=== PATIENT | female | born 1945 | race Caucasian/White ===

== ENCOUNTER → 2018-11-17 13:52 | Outpatient (CLI) | payer OTHER, SELFPAY | PROVIDERS: Visit Provider Student in an Organized Health Care Education/Training Program | DX: Z00.00 Encounter for general adult medical examination without abnormal findings (principal) | CPT/HCPCS: 77080; 77081 ==

== ENCOUNTER → 2020-01-16 16:15 | Outpatient (CLI) | payer OTHER, SELFPAY ==
--- NOTE | 2020-01-16 16:18 | DI.MG.S_ITS ---
BILATERAL DIGITAL SCREENING MAMMOGRAM 3D/2D WITH CAD: 01/16/2020 CLINICAL: Routine screening. Comparison is made to exams dated: 06/23/2018 mammogram, 03/02/2017 mammogram, and 01/29/2016 mammogram - outside location. The tissue of both breasts is extremely dense, which lowers the sensitivity of mammography. Current study was also evaluated with a Computer Aided Detection (CAD) system. No significant masses, calcifications, or other findings are seen in either breast. There has been no significant interval change. IMPRESSION: NEGATIVE There is no mammographic evidence of malignancy. A 1 year screening mammogram is recommended. This exam was interpreted at Station ID: [id number]. NOTE: For mammograms, a report in lay terms will be sent to the patient. Approximately 15% of breast malignancies will not be visualized mammographically. In the management of a palpable breast mass, a negative mammogram must not discourage biopsy of a clinically suspicious lesion. Electronically Signed By: Jania denton/gina:01/16/2020 16:57:35 letter sent: Normal Exam ACR BI-RADS Category 1: Negative [id number]
== END ==
PROVIDERS: Referring Provider Student in an Organized Health Care Education/Training Program; Visit Provider Student in an Organized Health Care Education/Training Program
DX: Z12.31 Encounter for screening mammogram for malignant neoplasm of breast (principal)
CPT/HCPCS: 77063; 77067

== ENCOUNTER → 2020-02-08 11:02 | Outpatient (ROUT) | payer OTHER, SELFPAY ==
[2020-02-08 11:15] LABS: INR 1.2 (0.9-1.3); Prothrombin Time 13.2 SECONDS (10.1-12.7)
== END ==
PROVIDERS: Visit Provider Student in an Organized Health Care Education/Training Program
DX: Z79.01 Long term (current) use of anticoagulants (principal); I82.90 Acute embolism and thrombosis of unspecified vein
CPT/HCPCS: 85610

== ENCOUNTER → 2020-02-15 07:51 | Outpatient (ROUT) | payer OTHER, SELFPAY ==
[2020-02-15 08:07] LABS: INR 1.4 (0.9-1.3); Prothrombin Time 15.7 SECONDS (10.1-12.7)
== END ==
PROVIDERS: Visit Provider Student in an Organized Health Care Education/Training Program
DX: I82.90 Acute embolism and thrombosis of unspecified vein (principal)
CPT/HCPCS: 85610

== ENCOUNTER → 2020-02-23 12:38 | Outpatient (ROUT) | payer OTHER, SELFPAY ==
[2020-02-23 13:14] LABS: INR 1.7 (0.9-1.3)
== END ==
PROVIDERS: Visit Provider Student in an Organized Health Care Education/Training Program
DX: Z79.01 Long term (current) use of anticoagulants (principal); I82.90 Acute embolism and thrombosis of unspecified vein
CPT/HCPCS: 85610

== ENCOUNTER → 2020-02-29 08:00 | Outpatient (ROUT) | payer OTHER, SELFPAY ==
[2020-02-29 08:08] LABS: INR 2.1 (0.9-1.3); Prothrombin Time 24.3 SECONDS (10.1-12.7)
== END ==
PROVIDERS: Visit Provider Student in an Organized Health Care Education/Training Program
DX: I82.90 Acute embolism and thrombosis of unspecified vein (principal)
CPT/HCPCS: 85610

== ENCOUNTER → 2020-03-07 07:58 | Outpatient (ROUT) | payer OTHER, SELFPAY ==
[2020-03-07 08:18] LABS: INR 2.7 (0.9-1.3)
== END ==
PROVIDERS: Visit Provider Student in an Organized Health Care Education/Training Program
DX: I82.90 Acute embolism and thrombosis of unspecified vein (principal); Z79.01 Long term (current) use of anticoagulants
CPT/HCPCS: 85610

== ENCOUNTER → 2020-03-07 07:59 | Outpatient (CLI) | payer OTHER, SELFPAY ==
--- NOTE | 2020-03-07 | DI.US.S_ITS ---
PROCEDURE: US PERIPH VENOUS LOW EXTREM LT INDICATIONS: LOCALIZED EDEMA TECHNIQUE: Real-time imaging, as well as color and pulse Doppler interrogation, were performed of the lower extremity deep veins from the inguinal ligament to the popliteal fossa. COMPARISON: None. FINDINGS: The common femoral, femoral and popliteal veins are normally compressible, and free of intraluminal thrombus. Color and pulse Doppler demonstrate normal phasic intraluminal flow. There is normal augmentation response to distal compression maneuver. IMPRESSION: No DVT found. Dictated by: Sonny Shukla M.D. on 03/07/2020 at 10:25 Approved by: Sonny Shukla M.D. on 03/07/2020 at 10:26
--- NOTE | 2020-03-07 08:05 | DI.RAD.S_ITS ---
PROCEDURE: XR ANKLE LT MIN 3V INDICATIONS: LEFT ANKLE PAIN AND SWELLING TECHNIQUE: 3 views of the ankle were acquired. COMPARISON: None. FINDINGS: Bones: No fracture. Tibiotalar degenerative changes and a possible 3 mm loose body projecting in the medial tibiotalar joint although technically nonspecific and this could be projectional artifact. Scattered degenerative subchondral sclerosis and spurring. Soft tissues: No tibiotalar joint effusion. Achilles tendon appears normal. IMPRESSION: Tibiotalar joint degenerative changes, and possible loose body as discussed above If the patient's pain or other symptoms persist, consider further evaluation with MRI Dictated by: Luis Uriarte M.D. on 03/07/2020 at 9:51 Approved by: Luis Uriarte M.D. on 03/07/2020 at 9:54
--- NOTE | 2020-03-07 08:05 | DI.RAD.S_ITS ---
PROCEDURE: XR T AND L SPINE 2 TO 3 VIEWS INDICATIONS: SCOLIOSIS TECHNIQUE: 2 views acquired of the thoracolumbar spine. COMPARISON: None. FINDINGS: Bones: No fracture. Diffuse spondylosis and facet arthropathy. 37? of levoscoliosis extending from the superior endplate of L1 to the inferior endplate of L3. Borderline positive coronal balance. Negative sagittal balance Soft tissues: No suspicious soft tissue calcifications. IMPRESSION: 37? of levoscoliosis from L1-L3 as above Diffuse spondylosis and facet disease. Dictated by: Luis Uriarte M.D. on 03/07/2020 at 9:54 Approved by: Luis Uriarte M.D. on 03/07/2020 at 9:58
== END ==
PROVIDERS: PCP Student in an Organized Health Care Education/Training Program; Referring Provider Student in an Organized Health Care Education/Training Program; Visit Provider Student in an Organized Health Care Education/Training Program
DX: R60.0 Localized edema (principal); M25.572 Pain in left ankle and joints of left foot; M41.26 Other idiopathic scoliosis, lumbar region; M47.816 Spondylosis without myelopathy or radiculopathy, lumbar region; I82.90 Acute embolism and thrombosis of unspecified vein; Z79.01 Long term (current) use of anticoagulants
CPT/HCPCS: 72082; 73610; 85610; 93971

== ENCOUNTER → 2020-03-14 09:59 | Outpatient (ROUT) | payer OTHER, SELFPAY ==
[2020-03-14 10:12] LABS: INR 2.5 (0.9-1.3); Prothrombin Time 28.9 SECONDS (10.1-12.7)
== END ==
PROVIDERS: PCP Student in an Organized Health Care Education/Training Program; Visit Provider Student in an Organized Health Care Education/Training Program
DX: I82.90 Acute embolism and thrombosis of unspecified vein (principal); Z79.01 Long term (current) use of anticoagulants
CPT/HCPCS: 85610

== ENCOUNTER → 2020-03-21 08:00 | Outpatient (ROUT) | payer OTHER, SELFPAY ==
[2020-03-21 08:08] LABS: INR 2.4 (0.9-1.3); Prothrombin Time 27.6 SECONDS (10.1-12.7)
== END ==
PROVIDERS: PCP Student in an Organized Health Care Education/Training Program; Visit Provider Student in an Organized Health Care Education/Training Program
DX: Z79.01 Long term (current) use of anticoagulants (principal)
CPT/HCPCS: 85610

== ENCOUNTER → 2020-03-28 08:08 | Outpatient (ROUT) | payer OTHER, SELFPAY ==
[2020-03-28 08:16] LABS: INR 1.9 (0.9-1.3); Prothrombin Time 22.1 SECONDS (10.1-12.7)
== END ==
PROVIDERS: PCP Student in an Organized Health Care Education/Training Program; Visit Provider Student in an Organized Health Care Education/Training Program
DX: I82.90 Acute embolism and thrombosis of unspecified vein (principal); Z79.01 Long term (current) use of anticoagulants
CPT/HCPCS: 85610

== ENCOUNTER → 2020-04-04 10:44 | Outpatient (ROUT) | payer OTHER, SELFPAY ==
[2020-04-04 10:55] LABS: INR 1.7 (0.9-1.3); Prothrombin Time 19.4 SECONDS (10.1-12.7)
== END ==
PROVIDERS: PCP Student in an Organized Health Care Education/Training Program; Visit Provider Student in an Organized Health Care Education/Training Program
DX: Z79.01 Long term (current) use of anticoagulants (principal)
CPT/HCPCS: 85610

== ENCOUNTER → 2020-04-11 08:21 | Outpatient (ROUT) | payer OTHER, SELFPAY ==
[2020-04-11 08:43] LABS: INR 2.1 (0.9-1.3); Prothrombin Time 24.3 SECONDS (10.1-12.7)
== END ==
PROVIDERS: PCP Student in an Organized Health Care Education/Training Program; Visit Provider Student in an Organized Health Care Education/Training Program
DX: Z79.01 Long term (current) use of anticoagulants (principal)
CPT/HCPCS: 85610

== ENCOUNTER → 2020-04-13 07:29 | Outpatient (CLI) | payer OTHER, SELFPAY ==
[2020-04-13 08:33] LABS: Blood Urea Nitrogen 21 mg/dL (7-17); Estimated Glomerular Filt Rate > 60.0 mL/min (>60)
== END ==
PROVIDERS: PCP Student in an Organized Health Care Education/Training Program; Referring Provider Otolaryngology; Visit Provider Otolaryngology
DX: R22.1 Localized swelling, mass and lump, neck (principal); I78.1 Nevus, non-neoplastic
CPT/HCPCS: 36415; 82565; 84520

== ENCOUNTER → 2020-04-16 11:06 | Outpatient (CLI) | payer OTHER, SELFPAY ==
--- NOTE | 2020-04-16 | DI.CT.S_ITS ---
PROCEDURE: CT SOFT TISSUE NECK W CON INDICATIONS: Localized swelling, mass and lump, neck TECHNIQUE: After the administration of intravenous contrast, 3.0 mm axial sections acquired from the sella to the aortic arch. Additional oblique axial 3.0 mm sections acquired through the pharynx. 3 mm thick coronal and sagittal reformats were generated. For radiation dose reduction, the following was used: automated exposure control. COMPARISON: None. FINDINGS: Image quality: Excellent. Lymph nodes: No enlarged lymph nodes seen throughout the neck. Vessels: Visualized vasculature appears patent. Neck spaces: There is asymmetric soft tissue fullness involving the left tonsillar pillar, although no discrete mass is identified. A presumed 1 mm tonsillith is noted on image 17/2. Glands: The parotid and submandibular glands appear normal. Thyroid gland contains a sub 5 mm low-attenuation focus in the left lobe which could be better assessed with ultrasound as clinically warranted image 55/2 . Miscellaneous: In the area marked by the fiducial placed on skin below the right ear, no definite mass or focal fluid collection is seen. No pathologic lymphadenopathy identified in this area. Biapical presumed scarring. Bones: Cervical spondylosis and grade 1 anterolisthesis of C2 on C3 and C3 on C4. Multilevel degenerative endplate sclerosis and spurring. Diffuse facet arthropathy. IMPRESSION: No discrete mass or focal fluid collection in the area marked by the fiducial near the right ear. No pathologic lymphadenopathy seen in this area. Asymmetric soft tissue fullness of the left tonsillar pillar which could be infectious or inflammatory, technically nonspecific. As clinical suspicion dictates, this could be further investigated with direct visualization. Dictated by: Luis Uriarte M.D. on 04/16/2020 at 12:16 Approved by: Luis Uriarte M.D. on 04/16/2020 at 12:26
== END ==
PROVIDERS: PCP Student in an Organized Health Care Education/Training Program; Referring Provider Student in an Organized Health Care Education/Training Program; Visit Provider Otolaryngology
DX: R22.1 Localized swelling, mass and lump, neck (principal); M47.812 Spondylosis without myelopathy or radiculopathy, cervical region; M43.12 Spondylolisthesis, cervical region
CPT/HCPCS: 70491; Q9967

== ENCOUNTER → 2020-04-18 08:52 | Outpatient (ROUT) | payer OTHER, SELFPAY ==
[2020-04-18 08:58] LABS: INR 1.9 (0.9-1.3); Prothrombin Time 21.2 SECONDS (10.1-12.7)
== END ==
PROVIDERS: PCP Student in an Organized Health Care Education/Training Program; Visit Provider Student in an Organized Health Care Education/Training Program
DX: Z79.01 Long term (current) use of anticoagulants (principal)
CPT/HCPCS: 85610

== ENCOUNTER → 2020-04-25 08:22 | Outpatient (ROUT) | payer OTHER, SELFPAY ==
[2020-04-25 08:32] LABS: INR 1.6 (0.9-1.3); Prothrombin Time 18.4 SECONDS (10.1-12.7)
== END ==
PROVIDERS: PCP Student in an Organized Health Care Education/Training Program; Visit Provider Student in an Organized Health Care Education/Training Program
DX: I82.90 Acute embolism and thrombosis of unspecified vein (principal); Z79.01 Long term (current) use of anticoagulants
CPT/HCPCS: 85610

== ENCOUNTER → 2020-05-02 08:31 | Outpatient (ROUT) | payer OTHER, SELFPAY ==
[2020-05-02 08:48] LABS: INR 1.7 (0.9-1.3); Prothrombin Time 19.6 SECONDS (10.1-12.7)
== END ==
PROVIDERS: PCP Student in an Organized Health Care Education/Training Program; Visit Provider Student in an Organized Health Care Education/Training Program
DX: I82.90 Acute embolism and thrombosis of unspecified vein (principal); Z79.01 Long term (current) use of anticoagulants
CPT/HCPCS: 85610

== ENCOUNTER → 2020-05-09 08:51 | Outpatient (ROUT) | payer OTHER, SELFPAY ==
[2020-05-09 08:59] LABS: INR 1.7 (0.9-1.3); Prothrombin Time 19.9 SECONDS (10.1-12.7)
== END ==
PROVIDERS: PCP Student in an Organized Health Care Education/Training Program; Visit Provider Student in an Organized Health Care Education/Training Program
DX: Z79.01 Long term (current) use of anticoagulants (principal)
CPT/HCPCS: 85610

== ENCOUNTER → 2020-05-16 08:55 | Outpatient (ROUT) | payer OTHER, SELFPAY ==
[2020-05-16 09:02] LABS: INR 2.1 (0.9-1.3); Prothrombin Time 24.4 SECONDS (10.1-12.7)
== END ==
PROVIDERS: PCP Student in an Organized Health Care Education/Training Program; Visit Provider Student in an Organized Health Care Education/Training Program
DX: Z79.01 Long term (current) use of anticoagulants (principal)
CPT/HCPCS: 85610

== ENCOUNTER → 2020-05-23 09:09 | Outpatient (ROUT) | payer OTHER, SELFPAY ==
[2020-05-23 09:19] LABS: INR 2.6 (0.9-1.3); Prothrombin Time 29.3 SECONDS (10.1-12.7)
== END ==
PROVIDERS: PCP Student in an Organized Health Care Education/Training Program; Visit Provider Student in an Organized Health Care Education/Training Program
DX: Z79.01 Long term (current) use of anticoagulants (principal)
CPT/HCPCS: 85610

== ENCOUNTER → 2020-05-30 08:37 | Outpatient (ROUT) | payer OTHER, SELFPAY ==
[2020-05-30 08:52] LABS: INR 2.3 (0.9-1.3); Prothrombin Time 26.2 SECONDS (10.1-12.7)
== END ==
PROVIDERS: PCP Student in an Organized Health Care Education/Training Program; Visit Provider Student in an Organized Health Care Education/Training Program
DX: Z79.01 Long term (current) use of anticoagulants (principal)
CPT/HCPCS: 85610

== ENCOUNTER → 2020-06-06 08:44 | Outpatient (ROUT) | payer OTHER, SELFPAY ==
[2020-06-06 08:52] LABS: INR 2.1 (0.9-1.3); Prothrombin Time 23.7 SECONDS (10.1-12.7)
== END ==
PROVIDERS: PCP Student in an Organized Health Care Education/Training Program; Visit Provider Student in an Organized Health Care Education/Training Program
DX: Z79.01 Long term (current) use of anticoagulants (principal)
CPT/HCPCS: 85610

== ENCOUNTER → 2020-06-08 11:53 | Outpatient (CLI) | payer OTHER, SELFPAY ==
--- NOTE | 2020-06-08 | DI.RAD.S_ITS ---
PROCEDURE: XR CHEST 2V INDICATIONS: RIGHT FLANK PAIN X 2 DAYS TECHNIQUE: 2 views of the chest were acquired. COMPARISON: None. FINDINGS: Surgical changes and devices: None. Lungs and pleura: Lungs are clear. No pleural effusions or pneumothorax. Lungs are hyperinflated suggesting COPD. Mediastinum: Mediastinal contours are normal. Heart size is normal. Bones and chest wall: No suspicious bony abnormalities. Thoracic spine degenerative disc disease. Soft tissues appear unremarkable. IMPRESSION: No acute cardiopulmonary disease process. Dictated by: Radha Alba MD, PhD on 06/08/2020 at 16:52 Approved by: Radha Alba MD, PhD on 06/08/2020 at 16:52
== END ==
PROVIDERS: PCP Student in an Organized Health Care Education/Training Program; Referring Provider Student in an Organized Health Care Education/Training Program; Visit Provider Student in an Organized Health Care Education/Training Program
DX: R10.9 Unspecified abdominal pain (principal)
CPT/HCPCS: 71046

== ENCOUNTER → 2020-06-13 08:18 | Outpatient (ROUT) | payer OTHER, SELFPAY ==
[2020-06-13 08:26] LABS: INR 2.3 (0.9-1.3); Prothrombin Time 25.7 SECONDS (10.1-12.7)
== END ==
PROVIDERS: PCP Student in an Organized Health Care Education/Training Program; Visit Provider Student in an Organized Health Care Education/Training Program
DX: Z79.01 Long term (current) use of anticoagulants (principal)
CPT/HCPCS: 85610

== ENCOUNTER → 2020-06-20 08:42 | Outpatient (ROUT) | payer OTHER, SELFPAY ==
[2020-06-20 08:48] LABS: INR 2.5 (0.9-1.3); Prothrombin Time 27.6 SECONDS (10.1-12.7)
== END ==
PROVIDERS: PCP Student in an Organized Health Care Education/Training Program; Visit Provider Student in an Organized Health Care Education/Training Program
DX: Z79.01 Long term (current) use of anticoagulants (principal)
CPT/HCPCS: 85610

== ENCOUNTER → 2020-06-27 08:39 | Outpatient (ROUT) | payer OTHER, SELFPAY ==
[2020-06-27 08:52] LABS: INR 2.7 (0.9-1.3); Prothrombin Time 30.2 SECONDS (10.1-12.7)
== END ==
PROVIDERS: PCP Student in an Organized Health Care Education/Training Program; Visit Provider Student in an Organized Health Care Education/Training Program
DX: Z79.01 Long term (current) use of anticoagulants (principal)
CPT/HCPCS: 85610

== ENCOUNTER → 2020-07-11 08:47 | Outpatient (ROUT) | payer OTHER, SELFPAY ==
[2020-07-11 08:56] LABS: INR 2.1 (0.9-1.3); Prothrombin Time 23.4 SECONDS (10.1-12.7)
== END ==
PROVIDERS: PCP Student in an Organized Health Care Education/Training Program; Visit Provider Student in an Organized Health Care Education/Training Program
DX: Z79.01 Long term (current) use of anticoagulants (principal)
CPT/HCPCS: 85610

== ENCOUNTER → 2020-08-29 16:41 | Outpatient (CLI) | payer OTHER, SELFPAY ==
[2020-08-29 18:19] LABS: D Dimer 229 ng/mL (<230)
== END ==
PROVIDERS: PCP Student in an Organized Health Care Education/Training Program; Referring Provider Student in an Organized Health Care Education/Training Program; Visit Provider Student in an Organized Health Care Education/Training Program
DX: M79.604 Pain in right leg (principal)
CPT/HCPCS: 36415; 85379

== ENCOUNTER → 2020-11-05 14:43 | Outpatient (CLI) | payer OTHER, SELFPAY ==
--- NOTE | 2020-11-05 | DI.RAD.S_ITS ---
PROCEDURE: XR DEXA AXIAL SKELETON INDICATIONS: Asymptomatic menopausal state COMPARISON: [facility], CR, XR DEXA AXIAL SKELETON, 11/17/2018, 14:58. FINDINGS: This blank DEXA report has been sent in error by the PACS system. The correct and complete report will be forthcoming in 1-2 days. Thank you for your patience and understanding. Dictated by: Radha Alba MD, PhD on 11/05/2020 at 16:22 Approved by: Radha Alba MD, PhD on 11/05/2020 at 16:22
== END ==
PROVIDERS: PCP Student in an Organized Health Care Education/Training Program; Referring Provider Student in an Organized Health Care Education/Training Program; Visit Provider Student in an Organized Health Care Education/Training Program
DX: M85.851 Other specified disorders of bone density and structure, right thigh (principal); Z78.0 Asymptomatic menopausal state; Z90.722 Acquired absence of ovaries, bilateral
CPT/HCPCS: 77080

== ENCOUNTER 2021-03-16 09:59 | Emergency (ER) | payer OTHER, SELFPAY ==
[2021-03-16 10:05] VITALS: BP 154/75; PULSE 183; RESP 20; TEMP 37.6; O2SAT 97; BMI 21.6
--- NOTE | 2021-03-16 10:24 | ED.SKABFB ---
HPI - Skin/Abscess/Foreign Bdy General Chief complaint: Skin/Abscess/Foreign Body Stated complaint: staff infection, on legs Time Seen by Provider: 03/16/21 10:05 Source: patient Mode of arrival: Ambulatory Limitations: no limitations History of Present Illness HPI narrative: 75-year-old female Nonsmoker with history of RLE DVT this summer presents with her and the chief complaint of RLE rash and fever over the past 2 days and they are concerned about a possible cellulitis. She has had no runny nose, sore throat or cough. She denies any chest pain or shortness of breath. She is not dizzy nor weak or lightheaded. She denies any change in appetite. She denies much in the way pain. Related Data Home Medications Medication Instructions Recorded Confirmed alendronate 70 mg/75 mL oral 70 mg PO QWEEK 10/18/20 10/18/20 solution amlodipine 2.5 mg tablet (Norvasc) 2.5 mg PO DAILY 10/18/20 10/18/20 cholecalciferol (vitamin D3) 50 50 mcg PO DAILY 10/18/20 10/18/20 mcg (2,000 unit) capsule (Vitamin D3) ibuprofen 300 mg tablet 600 mg PO Q6H PRN 10/18/20 10/18/20 multivitamin 1 tab DAILY 10/18/20 10/18/20 Allergies Allergy/AdvReac Type Severity Reaction Status Date / Time latex AdvReac Rash Verified 10/18/20 15:48 Review of Systems Review of Systems Narrative: GENERAL: Denies chills, fatigue, malaise, fever, sweats. HEENT: Denies sinus pain, ear pain, sore throat, difficulty swallowing, dizziness. RESPIRATORY: Denies dyspnea, cough, wheezing, hemoptysis, sputum. CARDIOVASCULAR: Denies chest pain, palpitations, orthopnea, edema, GASTROINTESTINAL: Denies nausea, vomiting, abdominal pain, diarrhea, constipation, melena. : Denies dysuria, frequency, incontinence, hematuria, urinary retention. MUSCULOSKELETAL: denies weakness, joint pain, or bony pain SKIN: See HPI NEUROLOGIC: Denies weakness, headache, numbness, change in speech, confusion, seizures, incoordination. PSYCHIATRIC: No concerning psychosocial issues. 12 point review of systems is negative except for those stated above Patient History Medical History Hypertension Osteoarthritis Surgical History H/O hysterectomy with oophorectomy Family History Father Stroke Social History Smoking Status: Never smoker substance use type: does not use Smoking Status: Never smoker alcohol intake frequency: 0-2 drinks per day Substance Use Type: does not use Exam Narrative Exam Narrative: GENERAL: [71 year old patient appears stated age. Well-developed patient, in mild distress. HEAD: Atraumatic. Normocephalic. EYES: Pupils equal round and reactive. Extraocular motions intact. No scleral icterus. No injection or drainage. ENT: Nose without bleeding, purulent drainage. Throat without erythema, tonsillar hypertrophy or exudate. Airway patent. NECK: Trachea midline. Non tender CARDIOVASCULAR: Tachycardic but regular rhythm without murmurs, gallops, or rubs. RESPIRATORY: Clear to auscultation. Breath sounds equal bilaterally. No wheezes, rales, or rhonchi. GASTROINTESTINAL: Abdomen soft, non-tender, nondistended. EXTREMITIES: No edema or joint tenderness. BACK: Nontender without deformity or crepitance. No flank tenderness. NEURO: AOx3. SKIN: Warm petechial rash along medial right lower extremity extending in to the medial thigh, long knee into upper foster, no surrounding erythema otherwise Initial Vital Signs Initial Vital Signs: Vital Signs Temperature 99.7 F H 03/16/21 10:05 Pulse Rate 183 H 03/16/21 10:05 Respiratory Rate 20 03/16/21 10:05 Blood Pressure 154/75 H 03/16/21 10:05 Pulse Oximetry 97 03/16/21 10:05 Course Orders Ordered: ED Orders 03/16/21 10:18 EKG-12 Lead Routine 03/16/21 10:20 C-Reactive Protein Quant Stat Complete Blood Count AUTO DIFF Stat Comprehensive Metabolic Panel Stat Lactate (Lactic Acid) Stat Lipase Stat Magnesium Stat NT-proBNP (BNP-Adult 18+) Stat Prothrombin Time INR Stat Troponin & CK Cardiac Panel Stat 03/16/21 10:50 Blood Culture Stat 03/16/21 11:32 US periph venous low extrem rt Stat 03/16/21 12:25 COVID19 - ADMIT ([employer] swab/PCR) Stat 03/16/21 13:04 Urine Microscopic Stat Discontinued Medications Doxycycline Hyclate (Doxycycline Hyclate 100 Mg Tablet) 100 mg PO NOW ONE Stop: 03/16/21 13:06 Last Admin: 03/16/21 13:10 Dose: 100 mg Documented by: MONCHO Lactated Ringer's (Lactated Ringers) 1,000 mls @ 1,000 mls/hr IV BOLUS ONE Stop: 03/16/21 11:17 Last Infusion: 03/16/21 11:54 Dose: 0 mls/hr Documented by: Admin: 03/16/21 10:35 Dose: 1,000 mls/hr Documented by: MONCHO Vital Signs Vital signs: Vital Signs - 8 hr 03/16/21 10:05 Temperature 99.7 F H Pulse Rate 183 H Respiratory Rate 20 Blood Pressure 154/75 H Pulse Oximetry 97 MDM - Skin/Abscess/Foreign Bdy Lab Data Result diagrams: 03/16/21 10:20 03/16/21 10:20 Labs: Lab Results 03/16/21 03/16/21 03/16/21 Range/Units 10:20 10:20 10:20 WBC 9.9 (4.5-11.0) X10^3/uL RBC 4.14 (4.0-5.2) X10^6/uL Hgb 12.4 (12.0-16.0) g/dL Hct 35.9 L (36-46) % MCV 86.7 (80-100) fL MCH 30.1 (26-34) PG MCHC 34.7 (30-36) % RDW 13.6 (11.6-14.8) % Plt Count 192 (150-400) X10^3/uL Neut % (Auto) 85.1 H (50-75) % Lymph % (Auto) 8.1 L (25-40) % [place] % (Auto) 6.5 (3-14) % Eos % (Auto) 0.0 L (2-4) % Baso % (Auto) 0.3 (0-2) % Neut # (Auto) 8400 H (2094-9875) /uL Lymph # (Auto) 800 L (7835-7418) /uL [place] # (Auto) 600 (0-900) /uL Eos # (Auto) 0 (0-450) /uL Baso # (Auto) 0 (0-100) /uL PT 13.1 H (10.1-12.7) SECONDS INR 1.2 (0.9-1.3) Sodium 128 L (137-145) mmol/L Potassium 3.5 (3.4-5.1) mmol/L Chloride 96 L (98-107) mmol/L Carbon Dioxide 26 (22-32) mmol/L BUN 21 H (7-17) mg/dL Creatinine 0.74 (0.52-1.04) mg/dL Estimated GFR > 60.0 (>60) mL/min BUN/Creatinine Ratio 28.4 H (6-22) Glucose 130 H (80-110) mg/dL Lactate (0.7-2.1) mmol/L Calcium 9.2 (8.4-10.2) mg/dL Magnesium 2.0 (1.6-2.3) mg/dL Total Bilirubin 0.4 (0.2-1.3) mg/dL AST 61 H (14-36) IU/L ALT 49 H (<35) IU/L Alkaline Phosphatase 41 (38-126) U/L Total Creatine Kinase 233 H (30-135) U/L CK-MB (CK-2) 1.76 (<2.37) ng/mL CK-MB (CK-2) Rel Index 0.8 L (1.5-5.0) % Troponin I 0.017 (0.01-0.034) ng/mL C-Reactive Protein 22.0 H (<1.0) mg/dL NT-Pro-B Natriuret Pep 2140 H (<125) pg/mL Total Protein 7.2 (6.3-8.2) g/dL Albumin 4.3 (3.5-5.0) g/dL Globulin 2.9 (1.7-4.1) g/dL Albumin/Globulin Ratio 1.5 (1.0-2.8) Lipase 173 (23-300) U/L 12/25/21 Range/Units 10:20 WBC (4.5-11.0) X10^3/uL RBC (4.0-5.2) X10^6/uL Hgb (12.0-16.0) g/dL Hct (36-46) % MCV (80-100) fL MCH (26-34) PG MCHC (30-36) % RDW (11.6-14.8) % Plt Count (150-400) X10^3/uL Neut % (Auto) (50-75) % Lymph % (Auto) (25-40) % [place] % (Auto) (3-14) % Eos % (Auto) (2-4) % Baso % (Auto) (0-2) % Neut # (Auto) (9778-5852) /uL Lymph # (Auto) (8409-5767) /uL [place] # (Auto) (0-900) /uL Eos # (Auto) (0-450) /uL Baso # (Auto) (0-100) /uL PT (10.1-12.7) SECONDS INR (0.9-1.3) Sodium (137-145) mmol/L Potassium (3.4-5.1) mmol/L Chloride (98-107) mmol/L Carbon Dioxide (22-32) mmol/L BUN (7-17) mg/dL Creatinine (0.52-1.04) mg/dL Estimated GFR (>60) mL/min BUN/Creatinine Ratio (6-22) Glucose (80-110) mg/dL Lactate 1.0 (0.7-2.1) mmol/L Calcium (8.4-10.2) mg/dL Magnesium (1.6-2.3) mg/dL Total Bilirubin (0.2-1.3) mg/dL AST (14-36) IU/L ALT (<35) IU/L Alkaline Phosphatase (38-126) U/L Total Creatine Kinase (30-135) U/L CK-MB (CK-2) (<2.37) ng/mL CK-MB (CK-2) Rel Index (1.5-5.0) % Troponin I (0.01-0.034) ng/mL C-Reactive Protein (<1.0) mg/dL NT-Pro-B Natriuret Pep (<125) pg/mL Total Protein (6.3-8.2) g/dL Albumin (3.5-5.0) g/dL Globulin (1.7-4.1) g/dL Albumin/Globulin Ratio (1.0-2.8) Lipase (23-300) U/L Urine Dip Bedside Urine Glucose Negative Bedside Urine Bilirubin - Negative Bedside Urine Ketone - Negative Urine Specific [place] 1.030 Bedside Urine Occult Blood ++ Bedside Urine pH 6.0 Bedside Urine Protein + 30 Bedside Urine Urobilinogen - Negative Bedside Urine Nitrite - Negative Bedside Urine Leukocytes - Negative Esterase Imaging Data US - DVT: Radiologist's Impression: Dolores Downey??75??F??1945 ? Allergy/Adv: latex Close Vascular Ultrasound (Signed) Arie Nunez - 03/16/21 Bone Densitometry (Signed) Radha Alba - 11/05/20 Outside DI 09/10/20 Chest X-Ray (Signed) Radha Alba - 06/08/20 Outside DI 04/19/[address] (Signed) Luis Uriarte - 04/16/20 Thoracolumbar Spine (Signed) Luis Uriarte - 03/07/20 Ankle X-Ray (Signed) Luis Uriarte - 03/07/20 Vascular Ultrasound (Signed) Sonny Shukla - 03/07/20 Mammogram Screening (Signed) Jania Rubio - 01/16/20 Bone Densitometry 11/17/18 [place] [address] Ultrasound Report Signed Patient: Dolores Downey MR#: [id number] : 1945 Acct:[id number] Age/Sex: 75 / F Date of Service: 03/16/21 Loc: ED Accession Number: [id number] ?? Procedure: US periph venous low extrem rt Ordering Provider: Aguilar Finn D.O. PROCEDURE:? US PERIPH VENOUS LOW EXTREM RT ? INDICATIONS:? pain, redness, rash, low grade fever ? TECHNIQUE:? Real-time imaging, as well as color and pulse Doppler interrogation, were performed of the lower extremity deep veins from the inguinal ligament to the popliteal fossa.? ? COMPARISON:? None. ? FINDINGS:? The common femoral, femoral and popliteal veins are normally compressible, and free of intraluminal thrombus.? Color and pulse Doppler demonstrate normal phasic intraluminal flow.? There is normal augmentation response to distal compression maneuver. ? ? IMPRESSION:? No sonographic evidence of DVT. ? ? Dictated by: Arie Nunez M.D. on 03/16/2021 at 12:30 ? ? Approved by: Arie Nunez M.D. on 03/16/2021 at 12:31 ? Discharge Plan Departure Patient Disposition: Home Clinical Impression: Cellulitis Instructions: DI for Cellulitis -- Adult Activity Restrictions/Additional Instructions: *You have been diagnosed with [right leg pain, redness and fever most likely due to cellulitis. There is no evidence of clot. *What to do: *Please continue to take your regular medications as directed. [x ] New medication prescriptions sent to your pharmacy: [[facility]] [ ] New medication written as a paper prescription [ ] No new medications given *Please follow up with your primary care provider in 2-3 days, call for an appointment. Let them know you were seen in the Emergency Department and that we ask that you be seen in follow up. We will electronically transmit a record of today's note if your PCP is in our system *If you do not have a primary care provider please contact the [facility] Resource line at [phone]. They will ask some questions about your medical history and help get you set up with a doctor in the community. *Return to Emergency Department if you should have any new, worsening or concerning symptoms, such as [fever greater than 101 F, shaking chills, worsening pain, persistent vomiting or other bothersome symptoms] Prescriptions: No Action multivitamin Tablet 1 tab DAILY 0RF amlodipine [Norvasc] 2.5 mg Tablet 2.5 mg PO DAILY 0RF ibuprofen 300 mg Tablet 600 mg PO Q6H PRN (Reason: Pain (Scale Score 4-6)) 0RF alendronate [Fosamax] 70 mg/75 mL Solution 70 mg PO QWEEK 0RF cholecalciferol (vitamin D3) [Vitamin D3] 50 mcg (2,000 unit) Capsule 50 mcg PO DAILY 0RF Referrals: Kaylyn Sifuentes MD [Primary Care Provider] -
[2021-03-16 10:30] LABS: Add Manual Diff / Slide Review NO; Basophils Absolute Auto 0 /uL (0-100); Basophils Percent Auto 0.3 % (0-2); Eosinophils Absolute Auto 0 /uL (0-450); Hematocrit 35.9 % (36-46); Hemoglobin 12.4 g/dL (12.0-16.0); Lymphocytes Absolute Auto 800 /uL (1100-4500); Lymphocytes Percent Auto 8.1 % (25-40); Mean Corpuscular HGB Conc 34.7 % (30-36); Mean Corpuscular Hemoglobin 30.1 PG (26-34); Mean Corpuscular Volume 86.7 fL (80-100); Monocytes Absolute Auto 600 /uL (0-900); Monocytes Percent Auto 6.5 % (3-14); Neutrophils Absolute Auto 8400 /uL (1500-7000); Neutrophils Percent Auto 85.1 % (50-75); Platelet Count 192 X10^3/uL (150-400); Red Blood Cell Count 4.14 X10^6/uL (4.0-5.2); Red Cell Distribution Width 13.6 % (11.6-14.8); White Blood Cell Count 9.9 X10^3/uL (4.5-11.0)
[2021-03-16] MEDS: LACTATED RINGERS 1,000 ML 1000 ML IV (10:35)
[2021-03-16 10:41] LABS: INR 1.2 (0.9-1.3); Prothrombin Time 13.1 SECONDS (10.1-12.7)
[2021-03-16 10:47] LABS: Alanine Aminotransferase 49 IU/L (<35); Albumin 4.3 g/dL (3.5-5.0); Albumin Globulin Ratio 1.5 (1.0-2.8); Alkaline Phosphatase 41 U/L (38-126); Aspartate Aminotransferase 61 IU/L (14-36); BUN Creatinine Ratio 28.4 (6-22); Bilirubin Total 0.4 mg/dL (0.2-1.3); Blood Urea Nitrogen 21 mg/dL (7-17); Calcium 9.2 mg/dL (8.4-10.2); Carbon Dioxide 26 mmol/L (22-32); Chloride 96 mmol/L (98-107); Creatine Kinase 233 U/L (30-135); Estimated Glomerular Filt Rate > 60.0 mL/min (>60); Globulin 2.9 g/dL (1.7-4.1); Glucose 130 mg/dL (80-110); HEMOLYSIS < 15 (0-50); Lipase 173 U/L (23-300); Potassium 3.5 mmol/L (3.4-5.1); Sodium 128 mmol/L (137-145); Total Protein 7.2 g/dL (6.3-8.2)
[2021-03-16 10:57] LABS: NT-proBNP (BNP-Adult 18+) 2140 pg/mL (<125); Troponin I 0.017 ng/mL (0.01-0.034)
[2021-03-16 10:59] LABS: CKMB % Relative Index 0.8 % (1.5-5.0); Creatine Kinase MB 1.76 ng/mL (<2.37)
--- NOTE | 2021-03-16 11:32 | DI.US.S_ITS ---
PROCEDURE: US PERIPH VENOUS LOW EXTREM RT INDICATIONS: pain, redness, rash, low grade fever TECHNIQUE: Real-time imaging, as well as color and pulse Doppler interrogation, were performed of the lower extremity deep veins from the inguinal ligament to the popliteal fossa. COMPARISON: None. FINDINGS: The common femoral, femoral and popliteal veins are normally compressible, and free of intraluminal thrombus. Color and pulse Doppler demonstrate normal phasic intraluminal flow. There is normal augmentation response to distal compression maneuver. IMPRESSION: No sonographic evidence of DVT. Dictated by: Arie Nunez M.D. on 03/16/2021 at 12:30 Approved by: Arie Nunez M.D. on 03/16/2021 at 12:31
[2021-03-16] MEDS: DOXYCYCLINE HYCLATE 100 MG TABLET PO (13:10)
[2021-03-16 13:15] LABS: RBC Urine 1-5/HPF (0-5/HPF); WBC Urine 1-5/HPF (0-5/HPF)
[2021-03-16 13:16] LABS: Amorphous Sediment Urine 2+; Bacteria Urine Few (2-10); Culture Indicated Urine Specimen Cultured; Mucus Urine 1+ (Negative); Squamous Epithelial Cell Urine 1-5 /HPF (0-5/HPF)
[2021-03-16 13:19] VITALS: BP 148/74; PULSE 103; RESP 16; O2SAT 97
[2021-03-16 13:38] LABS: COVID19 - ADMIT (NP swab/PCR) Negative (Negative)
== END 2021-03-16 13:19 | disposition home or self-care (01) ==
PROVIDERS: Emergency Provider Emergency Medicine; PCP Student in an Organized Health Care Education/Training Program
DX: L03.115 Cellulitis of right lower limb (principal); I10 Essential (primary) hypertension; Z20.822 Contact with and (suspected) exposure to COVID-19
CPT/HCPCS: 36415; 80053; 81003; 81015; 82550; 82553; 83605; 83690; 83735; 83880; 84484; 85025; 85610; 86140; 87040; 87086; 87635; 93005; 93971; 96360; 99284; C9803

== ENCOUNTER → 2021-08-22 10:42 | Outpatient (CLI) | payer OTHER, SELFPAY ==
--- NOTE | 2021-08-22 10:45 | DI.RAD.S_ITS ---
PROCEDURE: XR FOOT RT MIN 3V INDICATIONS: Pain in right ankle and joints of right foot TECHNIQUE: 3 views of the foot were acquired. COMPARISON: None. FINDINGS: Bones: No fractures or dislocations. No suspicious bony lesions. Soft tissues: No tibiotalar joint effusion. Achilles tendon appears normal. IMPRESSION: No acute osseous lesion. If symptoms and/or clinical suspicion for pathology persists, further assessment with repeat radiographs (7-10 days) or advanced imaging (e.g. CT, MRI or bone scan) should be considered. Dictated by: Radha Alba MD, PhD on 08/22/2021 at 11:43 Approved by: Radha Alba MD, PhD on 08/22/2021 at 11:44
--- NOTE | 2021-08-22 10:45 | DI.RAD.S_ITS ---
PROCEDURE: XR ANKLE RT MIN 3V INDICATIONS: Pain in right ankle and joints of right foot TECHNIQUE: 3 views of the ankle were acquired. COMPARISON: None. FINDINGS: Bones: No fractures or dislocations. Ankle mortise is normally aligned. No suspicious bony lesions. Small plantar calcaneal bone spur. Mild tibiotalar and midfoot osteoarthritis. Bones diffusely osteopenic. Soft tissues: No tibiotalar joint effusion. Kager's fat pad is not identified which is nonspecific finding but can be related Achilles tendon pathology. IMPRESSION: No fracture. No acute osseous lesion. If symptoms and/or clinical suspicion for pathology persists, further assessment with repeat radiographs (7-10 days) or advanced imaging (e.g. CT, MRI or bone scan) should be considered. Kager's fat pad not identified which can be related to Achilles tendon pathology. Recommend correlation with clinical data and MRI of the right ankle if clinically indicated. Dictated by: Radha Alba MD, PhD on 08/22/2021 at 11:34 Approved by: Radha Alba MD, PhD on 08/22/2021 at 11:38
== END ==
PROVIDERS: PCP Student in an Organized Health Care Education/Training Program; Referring Provider Student in an Organized Health Care Education/Training Program; Visit Provider Student in an Organized Health Care Education/Training Program
DX: M19.071 Primary osteoarthritis, right ankle and foot (principal); M77.31 Calcaneal spur, right foot; M25.571 Pain in right ankle and joints of right foot
CPT/HCPCS: 73610; 73630

== ENCOUNTER → 2021-09-02 12:40 | Outpatient (CLI) | payer OTHER, SELFPAY ==
--- NOTE | 2021-09-02 | DI.MRI.S_ITS ---
PROCEDURE: MR ANKLE RT WO CON INDICATIONS: abnormality achilles tendon seen on xray TECHNIQUE: Noncontrast sagittal T1 spin echo and T2 fast spin echo with fat saturation, axial proton density fast spin echo and T2 fast spin echo with fat saturation, coronal T1 spin echo and T2 fast spin echo with fat saturation through the ankle/hindfoot. COMPARISON: [facility], CR, XR ANKLE RT MIN 3V, 08/22/2021, 10:54. [facility], CR, XR FOOT RT MIN 3V, 08/22/2021, 10:56. FINDINGS: Image quality: Excellent. Bones and joints: No bone marrow contusions or fractures. No hindfoot coalitions. No osteochondral injuries of the talar dome. Mild focal subchondral edema at the anterolateral tibial plafond is most likely related to mild degenerative changes. Moderate mortise joint effusion. Joint effusion is also noted at the talonavicular joint. Mild nonspecific edema is seen throughout the included lower leg musculature as well as the intrinsic musculature of the foot, likely related to mild generalized chronic denervation changes. Nonspecific subcutaneous edema is seen throughout the lower leg. Medial structures: The deep and superficial layers of the deltoid ligament appear intact. The spring ligament components are intact. The posterior tibialis, flexor digitorum longus, and flexor hallucis longus tendons are intact. The posterior tibial neurovascular bundle appears normal within the tarsal tunnel, without extrinsic mass effect. Lateral structures: The anterior talofibular, calcaneofibular, and posterior talofibular ligaments appear intact. The anterior and posterior tibiofibular ligaments appear intact. The peroneus longus and brevis tendons demonstrate tendinosis. The sinus tarsi demonstrates normal fatty signal. Anterior structures: The tibialis anterior, extensor hallucis longus, and extensor digitorum longus tendons appear intact. The dorsal talonavicular ligament appears intact. Posterior and plantar structures: A lobular fluid collection is seen within the medial aspect of Kager's fat pad measuring 1.9 x 1.1 x 2.9 cm with mild surrounding edema. Findings are of uncertain etiology and may be related to Achilles peritenonitis or subtle distal gastrocnemius/ soleus tear. Mild thickening of the proximal plantar fascia is consistent with chronic fasciitis. IMPRESSION: 1. Lobular cyst in Kager's fat pad with surrounding soft tissue edema corresponds to the abnormality seen on radiographs from 08/22/2021. Findings are of uncertain etiology and may be related to Achilles peritenonitis versus subtle gastrocnemius or soleus muscle tear or a dissecting ganglion cyst. No Achilles tendon tear is seen. 2. Moderate mortise joint and talonavicular effusions. No acute trabecular bone injury. 3. Mildly increased [id number] is seen throughout the visualized musculature of the lower leg and foot that is nonspecific and may be related to denervation changes, myositis, dependent edema, or muscle strains. Nonspecific subcutaneous edema is present. 4. Peroneus brevis and longus tendinosis. 5. Chronic proximal plantar fasciitis. Dictated by: Joseluis Rivero M.D. on 09/02/2021 at 15:54 Approved by: Joseluis Rivero M.D. on 09/02/2021 at 16:08
== END ==
PROVIDERS: PCP Student in an Organized Health Care Education/Training Program; Referring Provider Student in an Organized Health Care Education/Training Program; Visit Provider Student in an Organized Health Care Education/Training Program
DX: R93.6 Abnormal findings on diagnostic imaging of limbs (principal); M25.571 Pain in right ankle and joints of right foot; M67.873 Other specified disorders of tendon, right ankle and foot; M25.471 Effusion, right ankle; M72.2 Plantar fascial fibromatosis
CPT/HCPCS: 73721

== ENCOUNTER 2021-09-29 10:26 | Inpatient (IN) | payer OTHER, SELFPAY ==
[2021-09-29] VITALS (22 sets, daily range): BP systolic 104–178; BP diastolic 56–97; PULSE 68–85; RESP 10–20; TEMP 36.1–36.8; O2SAT 92–100; BMI 23.2
[2021-09-29 11:09] LABS: Add Manual Diff / Slide Review NO; Basophils Absolute Auto 0 /uL (0-100); Basophils Percent Auto 0.4 % (0-2); Eosinophils Absolute Auto 0 /uL (0-450); Eosinophils Percent Auto 0.3 % (2-4); Hematocrit 33.3 % (36-46); Hemoglobin 11.4 g/dL (12.0-16.0); Lymphocytes Absolute Auto 1400 /uL (1100-4500); Lymphocytes Percent Auto 10.8 % (25-40); Mean Corpuscular HGB Conc 34.2 % (30-36); Mean Corpuscular Hemoglobin 28.5 PG (26-34); Mean Corpuscular Volume 83.5 fL (80-100); Monocytes Absolute Auto 900 /uL (0-900); Monocytes Percent Auto 7.2 % (3-14); Neutrophils Absolute Auto 10700 /uL (1500-7000); Neutrophils Percent Auto 81.3 % (50-75); Platelet Count 364 X10^3/uL (150-400); Red Blood Cell Count 3.99 X10^6/uL (4.0-5.2); Red Cell Distribution Width 13.8 % (11.6-14.8); White Blood Cell Count 13.1 X10^3/uL (4.5-11.0)
[2021-09-29 11:16] LABS: Alanine Aminotransferase 19 IU/L (<35); Albumin Globulin Ratio 1.6 (1.0-2.8); Alkaline Phosphatase 39 U/L (38-126); Aspartate Aminotransferase 26 IU/L (14-36); BUN Creatinine Ratio 31.7 (6-22); Bilirubin Total 0.8 mg/dL (0.2-1.3); Blood Urea Nitrogen 19 mg/dL (7-17); Calcium 7.7 mg/dL (8.4-10.2); Carbon Dioxide 24 mmol/L (22-32); Chloride 88 mmol/L (98-107); Estimated Glomerular Filt Rate > 60 mL/min (>60); Globulin 2.5 g/dL (1.7-4.1); Glucose 85 mg/dL (80-110); HEMOLYSIS 18 (0-50); Lipase 153 U/L (23-300); Sodium 122 mmol/L (137-145); Total Protein 6.5 g/dL (6.3-8.2)
[2021-09-29 11:17] LABS: Lactate (Lactic Acid) 0.6 mmol/L (0.7-2.1)
--- NOTE | 2021-09-29 11:20 | ED_ITS ---
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 Patient states that she had an injury with bruising around April it never healed about 2 weeks ago she saw orthopedic surgery was started on prednisone she did have an MRI approximately 3 weeks ago of the an kle. Since then it is continued to get worse open more with no improvement with prednisone by Dr. Tee with Orthopedic surgery and was started on cephalexin by her primary care physician several days ago. Since then has had increasing opening of the wound now has redness extending into the foot and up the leg circumferentially. No fevers or chills. No chest pain or shortness of breath. No nausea or vomiting. No diarrhea, no constipation or urinary symptoms. Patient has felt foggy but not significantly altered. No falls or difficulty with ambulation. She states the wounds not particularly painful. She has noticed some drainage that they describe more serous. The area has been warm to touch. No new sensation changes appreciated. Patient has had 1 prior episode of cellulitis in the other leg over a year ago but has not had chronic issues with infections or any diabetes. No tobacco, rare alcohol, no illicit. Related Data Home Medications Medication Instructions Recorded Confirmed alendronate 70 mg/75 mL oral 70 mg PO QWEEK 10/18/20 09/29/21 solution amlodipine 2.5 mg tablet (Norvasc) 2.5 mg PO DAILY 10/18/20 09/29/21 cholecalciferol (vitamin D3) 50 50 mcg PO DAILY 10/18/20 09/29/21 mcg (2,000 unit) capsule (Vitamin D3) ibuprofen 300 mg tablet 600 mg PO Q6H PRN Pain (Scale 10/18/20 09/29/21 Score 4-6) multivitamin 1 tab DAILY 10/18/20 09/29/21 prednisone 10 mg tablet 10 tab PO DAILY 09/29/21 09/29/21 Allergies Allergy/AdvReac Type Severity Reaction Status Date / Time latex AdvReac Rash Verified 09/29/21 10:49 Review of Systems Review of Systems ROS Unobtainable: All systems reviewed & are unremarkable except as noted in HPI and below Patient History Medical History Hypertension Osteoarthritis Surgical History H/O hysterectomy with oophorectomy Family History Father Stroke Social History household members: spouse Smoking Status: Never smoker alcohol intake: current substance use type: does not use Smoking Status: Never smoker alcohol intake frequency: 0-2 drinks per day Substance Use Type: does not use Exam Narrative Exam Narrative: GENERAL: Alert and oriented x three, female in mild distress. HEENT: Head normocephalic, atraumatic, EOMI, pupils reactive, face symmetric, moist mucous membranes NECK: Supple, full range of motion CARDIOVASCULAR: Regular rate and rhythm without murmurs, rubs or gallops. RESPIRATORY: Breath sounds equal bilaterally, no wheezes rales or rhonchi. ABDOMEN: Soft, nontender. Normoactive bowel sounds all 4 quadrants. No guarding or rebound, rigidity, no mass : No CVA tenderness EXTREMITIES: Normal range of motion, patient has a 2.5 cm circular wound adjacent to the medial malleoli on her right lower extremity. There is warmth, erythema with fluctuance at the site of the but no active drainage expressed. Patient has erythema, edema and warmth extending circumferentially up leg to about 4 cm below the knee and down towards the foot. Neurovascularly intact. Patient has cap refill less than 2 seconds. NEUROLOGICAL: Cranial nerves II through XII grossly intact. Moving all extremities SKIN: Warm, dry, no petechiae, no rashes or lesions otherwise noted. Initial Vital Signs Initial Vital Signs: Vital Signs Temperature 97.7 F 09/29/21 10:30 Pulse Rate 80 09/29/21 10:30 Respiratory Rate 18 09/29/21 10:30 Blood Pressure 167/78 H 09/29/21 10:30 Pulse Oximetry 98 09/29/21 10:30 Oxygen Delivery Method 09/29/21 10:30 Course Orders Ordered: Hydrocodone Bitart/Acetaminophen (Hydrocodone/Acet 5/325 Tablet) 1 tab PO Q4HR PRN PRN Reason: Pain, Moderate (4-6) Al Hydrox/Mg Hydrox/Simethicone (Mag Hydrox/Alum/Simeth 30 Ml Udc) 30 ml PO QID PRN PRN Reason: Dyspepsia Amlodipine Besylate (Amlodipine 5 Mg Tablet) 5 mg PO DAILY [facility] Last Admin: 09/30/21 08:52 Dose: 5 mg Documented By: CAMILLE Docusate Sodium (Docusate 100 Mg Capsule) 100 mg PO BID [facility] Last Admin: 09/30/21 08:47 Dose: Not Given Documented By: Admin: 09/29/21 20:18 Dose: 100 mg Documented By: Enoxaparin Sodium (Enoxaparin 40 Mg/0.4 Ml Syringe) 40 mg SUBCUT DAILY [facility] Last Admin: 09/30/21 08:52 Dose: 40 mg Documented By: CAMILLE Lactated Ringer's (Lactated Ringers) 1,000 mls @ 125 mls/hr IV CONT [facility] Last Infusion: 09/30/21 04:43 Dose: 0 mls/hr Documented By: Admin: 09/29/21 23:10 Dose: 125 mls/hr Documented By: Infusion: 09/29/21 23:10 Dose: 125 mls/hr Documented By: Admin: 09/29/21 15:26 Dose: 125 mls/hr Documented By: JAZMÍN Ceftriaxone Sodium 2,000 mg/ (Sodium Chloride) 100 mls @ 200 mls/hr IV Q24H [facility] Last Admin: 09/30/21 11:46 Dose: 200 mls/hr Documented By: CAMILLE Vancomycin HCl (Vancomycin) 1,000 mg in 200 mls @ 200 mls/hr IV Q12H [facility] Last Infusion: 09/30/21 02:59 Dose: 0 mls/hr Documented By: Admin: 09/30/21 01:59 Dose: 200 mls/hr Documented By: Ibuprofen (Ibuprofen 600 Mg Tablet) 600 mg PO Q8HR [facility] Last Admin: 09/30/21 06:00 Dose: 600 mg Documented By: Admin: 09/29/21 23:06 Dose: 600 mg Documented By: Admin: 09/29/21 15:26 Dose: 600 mg Documented By: JAZMÍN Magnesium Hydroxide (Magnesium Hydroxide 30 Ml Udc) 30 ml PO BEDTIME [facility] Last Admin: 09/29/21 20:22 Dose: Not Given Documented By: Morphine Sulfate (Morphine 2 Mg/Ml Inj) 2 mg IV Q4H PRN PRN Reason: Breakthrough pain only (8-10) Naloxone HCl (Naloxone 0.4 Mg/Ml Vial) 0.2 mg IV Q2MIN PRN PRN Reason: Opiate Reversal Ondansetron HCl (Ondansetron 4 Mg Odt) 4 mg PO Q8HR PRN PRN Reason: Nausea And Vomiting Ondansetron HCl (Ondansetron 4 Mg Odt) 4 mg PO Q4HR PRN PRN Reason: Nausea And Vomiting Ondansetron HCl (Ondansetron 4 Mg/2 Ml Inj) 4 mg IV Q4HR PRN PRN Reason: Nausea And Vomiting Oxycodone HCl (Oxycodone Ir 5 Mg Tablet) 5 mg PO Q4HR PRN PRN Reason: Pain, Moderate (4-6) Oxycodone HCl (Oxycodone Ir 5 Mg Tablet) 5 mg PO Q3HR PRN PRN Reason: Pain, Mild (1-3) Polyethylene Glycol (Polyethylene Glycol 3350 17 Gm Powd.Pack) 17 gm PO DAILY [facility] Last Admin: 09/30/21 08:47 Dose: Not Given Documented By: CAMILLE Sodium Biphosphate/Sodium Phosphate (Fleets Enema) 1 each NM PRN PRN PRN Reason: Constipation Vancomycin HCl (Vancomycin Trough) 1 [place] [facility] [place] [facility] Stop: 10/01/21 12:31 Vancomycin HCl (Vancomycin Peak) 1 [place] [facility] [place] [facility] Stop: 10/01/21 15:01 Vitamin D (Cholecalciferol (Vitamin D3) 1,000 Unit Tablet) 2,000 unit PO DAILY [facility] Last Admin: 09/30/21 08:52 Dose: 2,000 unit Documented By: CAMILLE Discontinued Medications Hydrocodone Bitart/Acetaminophen (Hydrocodone/Acet 5/325 Tablet) 1 tab PO PACUNOW PRN PRN Reason: Mild or moderate pain Sodium Chloride 1,000 ml/ (Gentamicin Sulfate 80 mg) 0 ml IRR NOW ONE Stop: 09/29/21 14:33 Last Admin: 09/29/21 14:00 Dose: 350 ml Documented By: CHEN Hydromorphone HCl (Hydromorphone 2 Mg Inj) 0 mg IV Q5MIN PRN PRN Reason: Pain, Moderate (4-6) Hydromorphone HCl (Hydromorphone 2 Mg Inj) 0 mg IV Q5M PRN PRN Reason: Pain, Severe (7-10) Vancomycin HCl/Dextrose (Vancomycin) 1,500 mg in 300 mls @ 200 mls/hr IV NOW ONE Stop: 09/29/21 13:21 Last Infusion: 09/29/21 15:27 Dose: 0 mls/hr Documented By: Admin: 09/29/21 13:37 Dose: 200 mls/hr Documented By: IF Ceftriaxone Sodium 2,000 mg/ (Sodium Chloride) 100 mls @ 200 mls/hr IV NOW ONE Stop: 09/29/21 11:58 Last Infusion: 09/29/21 13:18 Dose: 0 mls/hr Documented By: Admin: 09/29/21 12:31 Dose: 200 mls/hr Documented By: AMU Sodium Chloride (Normal Saline 0.9%) 1,000 mls @ 84 mls/hr IV NOW ONE Stop: 09/30/21 01:32 Last Infusion: 09/29/21 15:27 Dose: 0 mls/hr Documented By: Admin: 09/29/21 13:38 Dose: 84 mls/hr Documented By: IF Ondansetron HCl (Ondansetron 4 Mg/2 Ml Inj) 4 mg IV NOW PRN PRN Reason: Nausea And Vomiting Vancomycin HCl (Vancomycin Per Pharmacy) 1 request MISC NOW ONE Stop: 09/29/21 15:19 Last Admin: 09/29/21 18:38 Dose: Not Given Documented By: AKP Consultations Consultation #1: Dr. Carreon, orthopedic surgery saw and evaluated patient in the department. Aspirating lesion in the department she asked that we go ahead and start IV antibiotics prior to OR for washout. TPatient had MRI in August that was revie wed from about 3 weeks ago. Time: 12:18 Consultation #2: Dr. Carballo, accepts for admission. Patient was seen in ED by Dr. Carballo. Vital Signs Vital signs: Vital Signs - 8 hr 09/29/21 10:30 09/29/21 10:41 09/29/21 10:44 Temperature 97.7 F Pulse Rate 80 84 Respiratory Rate 18 Blood Pressure 167/78 H 140/68 Pulse Oximetry 98 Oxygen Delivery Method Room Air 09/29/21 10:44 09/29/21 11:00 09/29/21 11:01 Temperature Pulse Rate 73 Respiratory Rate 18 18 Blood Pressure 167/78 H 133/66 Pulse Oximetry 100 100 Oxygen Delivery Method 09/29/21 11:01 09/29/21 11:30 09/29/21 11:30 Temperature Pulse Rate 72 79 Respiratory Rate 18 Blood Pressure 135/74 Pulse Oximetry 100 100 Oxygen Delivery Method Room Air MDM - Skin/Abscess/Foreign Bdy Lab Data Result diagrams: 09/30/21 05:26 09/29/21 10:54 Labs: Lab Results 09/29/21 09/29/21 09/29/21 Range/Units 10:40 10:54 10:54 WBC 13.1 H (4.5-11.0) X10^3/uL RBC 3.99 L (4.0-5.2) X10^6/uL Hgb 11.4 L (12.0-16.0) g/dL Hct 33.3 L (36-46) % MCV 83.5 (80-100) fL MCH 28.5 (26-34) PG MCHC 34.2 (30-36) % RDW 13.8 (11.6-14.8) % Plt Count 364 (150-400) X10^3/uL Neut % (Auto) 81.3 H (50-75) % Lymph % (Auto) 10.8 L (25-40) % Trigg % (Auto) 7.2 (3-14) % Eos % (Auto) 0.3 L (2-4) % Baso % (Auto) 0.4 (0-2) % Neut # (Auto) 02605 H (5522-7756) /uL Lymph # (Auto) 1400 (0711-8044) /uL Trigg # (Auto) 900 (0-900) /uL Eos # (Auto) 0 (0-450) /uL Baso # (Auto) 0 (0-100) /uL ESR (0-20) MM/HR Sodium 122 L (137-145) mmol/L Potassium 4.0 (3.4-5.1) mmol/L Chloride 88 L (98-107) mmol/L Carbon Dioxide 24 (22-32) mmol/L BUN 19 H (7-17) mg/dL Creatinine 0.60 (0.52-1.04) mg/dL Estimated GFR > 60 (>60) mL/min BUN/Creatinine Ratio 31.7 H (6-22) Glucose 85 (80-110) mg/dL Lactate (0.7-2.1) mmol/L Calcium 7.7 L (8.4-10.2) mg/dL Total Bilirubin 0.8 (0.2-1.3) mg/dL AST 26 (14-36) IU/L ALT 19 (<35) IU/L Alkaline Phosphatase 39 (38-126) U/L C-Reactive Protein (<1.0) mg/dL Total Protein 6.5 (6.3-8.2) g/dL Albumin 4.0 (3.5-5.0) g/dL Globulin 2.5 (1.7-4.1) g/dL Albumin/Globulin Ratio 1.6 (1.0-2.8) Lipase 153 (23-300) U/L Procalcitonin 0.09 (<0.5) ng/mL SARS-CoV-2 (PCR) Negative (Negative) 09/29/21 09/29/21 09/29/21 Range/Units 10:54 10:54 10:54 WBC (4.5-11.0) X10^3/uL RBC (4.0-5.2) X10^6/uL Hgb (12.0-16.0) g/dL Hct (36-46) % MCV (80-100) fL MCH (26-34) PG MCHC (30-36) % RDW (11.6-14.8) % Plt Count (150-400) X10^3/uL Neut % (Auto) (50-75) % Lymph % (Auto) (25-40) % Trigg % (Auto) (3-14) % Eos % (Auto) (2-4) % Baso % (Auto) (0-2) % Neut # (Auto) (3371-0857) /uL Lymph # (Auto) (0907-1457) /uL Trigg # (Auto) (0-900) /uL Eos # (Auto) (0-450) /uL Baso # (Auto) (0-100) /uL ESR 33 H (0-20) MM/HR Sodium (137-145) mmol/L Potassium (3.4-5.1) mmol/L Chloride (98-107) mmol/L Carbon Dioxide (22-32) mmol/L BUN (7-17) mg/dL Creatinine (0.52-1.04) mg/dL Estimated GFR (>60) mL/min BUN/Creatinine Ratio (6-22) Glucose (80-110) mg/dL Lactate 0.6 L (0.7-2.1) mmol/L Calcium (8.4-10.2) mg/dL Total Bilirubin (0.2-1.3) mg/dL AST (14-36) IU/L ALT (<35) IU/L Alkaline Phosphatase (38-126) U/L C-Reactive Protein 14.3 H (<1.0) mg/dL Total Protein (6.3-8.2) g/dL Albumin (3.5-5.0) g/dL Globulin (1.7-4.1) g/dL Albumin/Globulin Ratio (1.0-2.8) Lipase (23-300) U/L Procalcitonin (<0.5) ng/mL SARS-CoV-2 (PCR) (Negative) MDM Narrative Medical decision making narrative: This is a 76-year-old female who is had a leg ulcer that has been worsening over the past several months she had MRI about 3 weeks ago today she appears 7 area of fluctuance has been rapidly worsening and now has developed cellulitis of her lower leg which is circumferential. She does not appear septic, she has hyponatremia she is unclear origin her medications do not seem to be a likely cause. Patient was seen at bedside by both Orthopedic surgery who aspirated the site and is planning take patient to the OR. Discussed antibiotics and started these in the department and her admitting service who also saw and evaluated the patient in the department and accepts. Discharge Plan Departure Patient Disposition: Admitted As Inpatient Clinical Impression: Abscess of ankle, Hyponatremia, Cellulitis of leg, right Admit Date/Time: 09/29/21 12:35 Admit Provider: Tyler Carballo
[2021-09-29 11:33] LABS: Procalcitonin 0.09 ng/mL (<0.5)
[2021-09-29 11:37] LABS: COVID19 -Nasal RAPID Negative (Negative)
[2021-09-29] MEDS: cefTRIAXone 2,000 MG in SODIUM CHLORIDE 0.9% 100 ML 200 MG IV (12:31)
[2021-09-29 12:36] LABS: C-Reactive Protein Quant 14.3 mg/dL (<1.0)
--- NOTE | 2021-09-29 12:45 | P.HP_ITS ---
History of Present Illness History of Present Illness Date Patient Seen: 09/29/21 Date of Onset of Symptoms: 09/26/21 Chief complaint: leg ulcer getting worse PCP said come in Narrative: This is a 76-year-old female with a somewhat complicated past medical history. 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 She was treated with Coumadin for certain number of months and ultimately that was discontinued several years ago. She has had ultrasounds after her deep venous thrombosis which did not show evidence of a clot. She is not currently on blood thinners. She also has a history of a prior admission with a right leg cellulitis. She has also seen Dr. Santiago for ankle pain. She was worked up with an MRI scan of her right ankle which showed soft tissue swelling near the Achilles tendon. She notes that a few days ago she developed a worsening purple spot on her right leg on the medial aspect of the leg. It has gotten progressively worse. She is our primary care practitioner and has been on oral antibiotics. Her is at bedside he has pictures on his phone of progressive worsening erythema and cellulitis on her right leg with a worsening wound. She has not had fevers or chills she does not feel ill. Patient History Medical History Hypertension Osteoarthritis Surgical History H/O hysterectomy with oophorectomy Family & Social History Family History Father Stroke Safety & Behavioral: Feels Safe in Current Yes Environment Tobacco & Substance use: Smoking Status Never smoker alcohol intake frequency 0-2 drinks per day Substance Use Type does not use Meds Home Medications and Allergies Home Medications Medication Instructions Recorded Confirmed Type alendronate 70 mg/75 mL oral 70 mg PO QWEEK 10/18/20 10/18/20 History solution amlodipine 2.5 mg tablet (Norvasc) 2.5 mg PO DAILY 10/18/20 10/18/20 History cholecalciferol (vitamin D3) 50 50 mcg PO DAILY 10/18/20 10/18/20 History mcg (2,000 unit) capsule (Vitamin D3) ibuprofen 300 mg tablet 600 mg PO Q6H PRN Pain (Scale 10/18/20 10/18/20 History Score 4-6) multivitamin 1 tab DAILY 10/18/20 10/18/20 History doxycycline hyclate 100 mg tablet 100 mg PO BID #20 tabs 03/16/21 Rx Allergies Allergy/AdvReac Type Severity Reaction Status Date / Time latex AdvReac Rash Verified 09/29/21 10:49 Review of Systems Review of Systems Narrative: She says that she has been feeling okay. She has a history of hypertension, she has a history of a somewhat low sodium in the past but not significant. She denies a history of shortness of breath chest pain, she does note some increased swelling in the right lower extremity Exam Vital Signs (past 8 hours): - 09/29/21 10:30 09/29/21 10:41 09/29/21 10:44 Temperature 97.7 F Pulse Rate 80 84 Respiratory Rate 18 Blood Pressure 167/78 H 140/68 Pulse Oximetry 98 Oxygen Delivery Method Room Air 09/29/21 10:44 09/29/21 11:00 09/29/21 11:01 Temperature Pulse Rate 73 Respiratory Rate 18 18 Blood Pressure 167/78 H 133/66 Pulse Oximetry 100 100 Oxygen Delivery Method 09/29/21 11:01 09/29/21 11:30 09/29/21 11:30 Temperature Pulse Rate 72 79 Respiratory Rate 18 Blood Pressure 135/74 Pulse Oximetry 100 100 Oxygen Delivery Method Room Air 09/29/21 12:06 09/29/21 12:07 09/29/21 12:07 Temperature Pulse Rate 72 83 Respiratory Rate 18 Blood Pressure 178/93 H Pulse Oximetry 92 98 Oxygen Delivery Method 09/29/21 12:30 09/29/21 12:30 Temperature Pulse Rate 75 Respiratory Rate 20 Blood Pressure 157/80 H Pulse Oximetry 100 Oxygen Delivery Method Oxygen Delivery Method Room Air Narrative Exam Narrative: HEENT is benign, lungs are clear, cor regular rate and rhythm, abdomen soft and benign, examination the right lower extremity shows about a 3-4 cm wound on the medial aspect of the right ankle, it is erythematous with whitish discoloration of the skin and fluctuant, her calf is soft posteriorly, she has good range of motion in the ankle, she has adequate capillary refill distally and foot is pink warm and viable, there is erythema which is along the entire right leg up to about the level of the knee, she has significant osteoarthritic change in bilateral hands Objective Labs Result Diagrams: 09/29/21 10:54 09/29/21 10:54 Labs: Laboratory Results - last 24 hr 09/29/21 09/29/21 09/29/21 10:40 10:54 10:54 WBC 13.1 H RBC 3.99 L Hgb 11.4 L Hct 33.3 L MCV 83.5 MCH 28.5 MCHC 34.2 RDW 13.8 Plt Count 364 Neut % (Auto) 81.3 H Lymph % (Auto) 10.8 L Andrews % (Auto) 7.2 Eos % (Auto) 0.3 L Baso % (Auto) 0.4 Neut # (Auto) 20332 H Lymph # (Auto) 1400 Andrews # (Auto) 900 Eos # (Auto) 0 Baso # (Auto) 0 Sodium 122 L Potassium 4.0 Chloride 88 L Carbon Dioxide 24 BUN 19 H Creatinine 0.60 Estimated GFR > 60 BUN/Creatinine Ratio 31.7 H Glucose 85 Lactate Calcium 7.7 L Total Bilirubin 0.8 AST 26 ALT 19 Alkaline Phosphatase 39 C-Reactive Protein Total Protein 6.5 Albumin 4.0 Globulin 2.5 Albumin/Globulin Ratio 1.6 Lipase 153 Procalcitonin 0.09 SARS-CoV-2 (PCR) Negative 09/29/21 09/29/21 10:54 10:54 WBC RBC Hgb Hct MCV MCH MCHC RDW Plt Count Neut % (Auto) Lymph % (Auto) Andrews % (Auto) Eos % (Auto) Baso % (Auto) Neut # (Auto) Lymph # (Auto) Andrews # (Auto) Eos # (Auto) Baso # (Auto) Sodium Potassium Chloride Carbon Dioxide BUN Creatinine Estimated GFR BUN/Creatinine Ratio Glucose Lactate 0.6 L Calcium Total Bilirubin AST ALT Alkaline Phosphatase C-Reactive Protein 14.3 H Total Protein Albumin Globulin Albumin/Globulin Ratio Lipase Procalcitonin SARS-CoV-2 (PCR) Assessment & Plan Assessment and plan (1) Abscess of leg, right: Status: Acute (2) History of DVT of lower extremity: Status: Acute (3) Cellulitis of leg without foot, right: Status: Acute (4) Hyponatremia: Status: Acute Plan She has a fluctuant area on her right leg. She was prepped with iodine and a p roximally 1.5 cc of gross purulent material was aspirated from the medial aspect of her right leg. It was sent for stat Gram stain culture and sensitivity. She has evidence of an abscess on the right leg. I have recommended emergent irrigation and debridement. She also has significant cellulitis of the right lower extremity. She has a history of a DVT and we will get an ultrasound. She reportedly has had ultrasounds which did not show venous thrombus abnormalities after her DVT which was a few years ago. She also is hyponatremic. I think she needs admission to the hospital as an inpatient and IV antibiotics in addition to emergent surgery. The emergency room is consulting the medicine service for admission. Time Spent With Patient Critical Care time: I spent a total of [] minutes of critical care time on this patient's care today; this time is exclusive of procedural time.
[2021-09-29 12:53] LABS: Erythrocyte Sedimentation Rate 33 MM/HR (0-20)
--- NOTE | 2021-09-29 12:56 | PM.OP.1 ---
Operative Date/Time/Diagnoses Date of procedure: 09/29/21 Time of procedure: 13:30 Pre-op diagnosis: Right leg abscess Post-op diagnosis: same Procedure & Clinicians Procedure: Right leg irrigation and debridement Same procedure as scheduled: Yes Indications: This is a 76-year-old female who came to the emergency room with a worsening right leg ulcer pain and erythema. Aspiration showed gross pus and she is brought to the operating room for irrigation and debridement. She was worked up previously and found to have a fluid collection deep to the Achilles tendon. Surgeon: Viji Carreon Click Yes if Unassisted: Yes Anesthesia Type: General Operative Notes Findings: Gross purulence material with the abscess cavity in the leg, excisional debridement removing necrotic fat and subcutaneous tissues. Fluid collection extended down deep to the Achilles tendon. Closure Type: not applicable Specimen(s): other (Deep culture) Applied: drain(s) (Wound was packed) Estimated Blood Loss (mL): 50 Blood products transfused: none Procedure in detail: Patient is brought to the operating room. She underwent induction of a general anesthesia. Her right lower extremity prepped draped standard sterile fashion. Tourniquet was applied. A time-out was performed. An incision was made on the medial aspect of the leg. Dissection was carried out through skin and subcutaneous tissues. There was gross purulent mount material encountered. Deep cultures were obtained. An excisional debridement was performed removing some necrotic soft tissue. There was a fairly large cavity. Grossly infected fat and necrotic material was removed. The wounds meticulously irrigated with normal saline. It was packed open. The wound was dressed sterilely. Patient tolerated the procedure well she was transferred recovery room in satisfactory condition. Complications: none Post-operative Condition: stable Disposition: Acute Care Plan for aftercare: Admission for IV antibiotics. Check culture results. Change dressing on Thursday. Possible DPC when there is resolution of the infection. Patient has a history of a DVT and we will plan to get an ultrasound and she will need anticoagulation until there is improvement in her clinical status and ultrasound is negative for DVT. She had moderate necrotic tissue in the skin and subcutaneous tissue. Ultimately she may need secondary closure or skin graft. There was no grossly exposed bone neurovascular structures or tendon.
--- NOTE | 2021-09-29 13:05 | P.HP_ITS ---
History of Present Illness History of Present Illness Date Patient Seen: 09/29/21 Time Patient Seen: 13:06 Date of Onset of Symptoms: 09/22/21 Chief complaint: leg ulcer getting worse PCP said come in Narrative: PT with longstanding hx of stasis dermatitis started having new small bruise- type wound on medial R ankle one week ago which progressed. Seen by PCP last week and started on cephalexin PO for some faint redness and a dry sore. Today the redness is much beefier and extends to the knee with raised clear cellulitis morphology. The medial ankle wound is open and appears actively infected with exudate. Dr. Carreon was able to see pt in ED and will be addressing it in the OR hopefully later today. Pt reports otherwise feeling generally ok not very hungry no issues with elimination able to bear weight on the leg it just hurts more and more. Patient History Medical History Hypertension Osteoarthritis Surgical History H/O hysterectomy with oophorectomy Family & Social History Family History Father Stroke Safety & Behavioral: Feels Safe in Current Yes Environment Tobacco & Substance use: Smoking Status Never smoker alcohol intake frequency 0-2 drinks per day Substance Use Type does not use Meds Home Medications and Allergies Home Medications Medication Instructions Recorded Confirmed Type alendronate 70 mg/75 mL oral 70 mg PO QWEEK 10/18/20 10/18/20 History solution amlodipine 2.5 mg tablet (Norvasc) 2.5 mg PO DAILY 10/18/20 10/18/20 History cholecalciferol (vitamin D3) 50 50 mcg PO DAILY 10/18/20 10/18/20 History mcg (2,000 unit) capsule (Vitamin D3) ibuprofen 300 mg tablet 600 mg PO Q6H PRN Pain (Scale 10/18/20 10/18/20 History Score 4-6) multivitamin 1 tab DAILY 10/18/20 10/18/20 History doxycycline hyclate 100 mg tablet 100 mg PO BID #20 tabs 03/16/21 Rx Allergies Allergy/AdvReac Type Severity Reaction Status Date / Time latex AdvReac Rash Verified 09/29/21 10:49 Review of Systems Review of Systems Narrative: all systems reviewed and negative except as otherwise documented in HPI Exam Vital Signs (past 8 hours): - 09/29/21 10:30 09/29/21 10:41 09/29/21 10:44 Temperature 97.7 F Pulse Rate 80 84 Respiratory Rate 18 Blood Pressure 167/78 H 140/68 Pulse Oximetry 98 Oxygen Delivery Method Room Air 09/29/21 10:44 09/29/21 11:00 09/29/21 11:01 Temperature Pulse Rate 73 Respiratory Rate 18 18 Blood Pressure 167/78 H 133/66 Pulse Oximetry 100 100 Oxygen Delivery Method 09/29/21 11:01 09/29/21 11:30 09/29/21 11:30 Temperature Pulse Rate 72 79 Respiratory Rate 18 Blood Pressure 135/74 Pulse Oximetry 100 100 Oxygen Delivery Method Room Air 09/29/21 12:06 09/29/21 12:07 09/29/21 12:07 Temperature Pulse Rate 72 83 Respiratory Rate 18 Blood Pressure 178/93 H Pulse Oximetry 92 98 Oxygen Delivery Method 09/29/21 12:30 09/29/21 12:30 Temperature Pulse Rate 75 Respiratory Rate 20 Blood Pressure 157/80 H Pulse Oximetry 100 Oxygen Delivery Method Oxygen Delivery Method Room Air Narrative Exam Narrative: laying on ED gurney with at bedside Const General: cooperative, comfortable and frail appearing [facility] Head: normocephalic and atraumatic Resp Auscultation: clear to auscultation bilaterally Cardio Rate: regular rate Rhythm: regular rhythm Heart Sounds: S1 normal and S2 normal Pulses: posterior tibial pulses present (directly under open wound) GI Other: soft nontender nondistended normal bowel sounds Skin Wounds: wounds noted (RLE over ankle approx 4cm irregular over PT pulse) Other: no lesions noted other than on RLE Extrem General: other (RLE with extensive distal cellulitis up to knee. open wound on medial ankle) Psych Appearance: grossly normal and well kempt Objective Labs Result Diagrams: 09/29/21 10:54 09/29/21 10:54 Labs: Laboratory Results - last 24 hr 09/29/21 09/29/21 09/29/21 10:40 10:54 10:54 WBC 13.1 H RBC 3.99 L Hgb 11.4 L Hct 33.3 L MCV 83.5 MCH 28.5 MCHC 34.2 RDW 13.8 Plt Count 364 Neut % (Auto) 81.3 H Lymph % (Auto) 10.8 L [place] % (Auto) 7.2 Eos % (Auto) 0.3 L Baso % (Auto) 0.4 Neut # (Auto) 48014 H Lymph # (Auto) 1400 [place] # (Auto) 900 Eos # (Auto) 0 Baso # (Auto) 0 ESR Sodium 122 L Potassium 4.0 Chloride 88 L Carbon Dioxide 24 BUN 19 H Creatinine 0.60 Estimated GFR > 60 BUN/Creatinine Ratio 31.7 H Glucose 85 Lactate Calcium 7.7 L Total Bilirubin 0.8 AST 26 ALT 19 Alkaline Phosphatase 39 C-Reactive Protein Total Protein 6.5 Albumin 4.0 Globulin 2.5 Albumin/Globulin Ratio 1.6 Lipase 153 Procalcitonin 0.09 SARS-CoV-2 (PCR) Negative 09/29/21 09/29/21 09/29/21 10:54 10:54 10:54 WBC RBC Hgb Hct MCV MCH MCHC RDW Plt Count Neut % (Auto) Lymph % (Auto) [place] % (Auto) Eos % (Auto) Baso % (Auto) Neut # (Auto) Lymph # (Auto) [place] # (Auto) Eos # (Auto) Baso # (Auto) ESR 33 H Sodium Potassium Chloride Carbon Dioxide BUN Creatinine Estimated GFR BUN/Creatinine Ratio Glucose Lactate 0.6 L Calcium Total Bilirubin AST ALT Alkaline Phosphatase C-Reactive Protein 14.3 H Total Protein Albumin Globulin Albumin/Globulin Ratio Lipase Procalcitonin SARS-CoV-2 (PCR) Assessment & Plan Assessment & Plan narrative: #RLE cellulitis with abcess IV abx and IVF intiiated in ED - failed outpt tx with keflex Surgery reportedly planning washout in OR agree this needs addressed NPO for now #htn continue home amlodipine 5mg in am #osteoporosis receives alendronate qweek each Thursday, hold while inpatient for now DVT ppx: lovenox and scds diet: NPO for now code: DNR MDM: Omar Torres [phone] PCP: Maria Alejandra Beltran Time Spent With Patient Critical Care time: I spent a total of [] minutes of critical care time on this patient's care today; this time is exclusive of procedural time.
[2021-09-29] MEDS: VANCOMYCIN 1,500 MG/300 ML PIGGYBACK 200 MG IV (13:37)
[2021-09-29] MEDS: SODIUM CHLORIDE 0.9% 1,000 ML 84 ML IV (13:38)
--- NOTE | 2021-09-29 13:42 | SUR.OPER ---
Supine on padded OR bed, head on pillow, arms secured on padded arm boards at <90 degrees abduction, legs uncrossed, safety belt at thigh, tape over blanket over lower legs.
[2021-09-29] MEDS: SODIUM CHLORIDE 0.9% 1,000 ML, GENTAMICIN 80 MG IRR (14:00)
[2021-09-29] MEDS: IBUPROFEN 600 MG TABLET PO ×2 (15:26→23:06)
[2021-09-29] MEDS: LACTATED RINGERS 1,000 ML 125 ML IV ×2 (15:26→23:10)
--- NOTE | 2021-09-29 15:28 | SUR.PHASEI ---
1510 Pt transferred to room 223 in stretcher alert, oriented x3. Able to move self to bed in room. SBAR report to Eleuterio LYONS. Pt transferred with t-shirt and underwear in belongings bag. took other cloths, shoes and purse in ED.
[2021-09-29] MEDS: DOCUSATE 100 MG CAPSULE PO (20:18)
[2021-09-30] VITALS (7 sets, daily range): BP systolic 120–146; BP diastolic 64–81; PULSE 68–79; RESP 16–20; TEMP 36.2–37.1; O2SAT 98–100
--- NOTE | 2021-09-30 | DI.US.S_ITS ---
PROCEDURE: US PERIP VENOUS LOW EXTREM RT INDICATIONS: HISTORY OF DVT WITH CELLULITIS ABSCESS TECHNIQUE: Real-time imaging, as well as color and pulse Doppler interrogation, were performed of the lower extremity deep veins from the inguinal ligament to the popliteal fossa. COMPARISON: [facility], [facility] VENOUS LOW EXTREM RT, 03/16/2021, 12:10. FINDINGS: The common femoral, femoral and popliteal veins are normally compressible, and free of intraluminal thrombus. Color and pulse Doppler demonstrate normal phasic intraluminal flow. There is normal augmentation response to distal compression maneuver. IMPRESSION: No evidence of deep venous thrombosis, right lower extremity Approved by: Zack Pruitt M.D. on 09/30/2021 at 17:46
[2021-09-30] MEDS: VANCOMYCIN 1,000 MG/200 ML PIGGYBACK 200 MG IV ×2 (01:59→13:17)
[2021-09-30 05:48] LABS: Hemoglobin 10.9 g/dL (12.0-16.0)
[2021-09-30 05:57] LABS: Hematocrit 31.6 % (36-46); Mean Corpuscular HGB Conc 34.4 % (30-36); Mean Corpuscular Hemoglobin 28.8 PG (26-34); Mean Corpuscular Volume 83.7 fL (80-100); Platelet Count 342 X10^3/uL (150-400); Red Blood Cell Count 3.78 X10^6/uL (4.0-5.2); Red Cell Distribution Width 13.6 % (11.6-14.8); White Blood Cell Count 9.8 X10^3/uL (4.5-11.0)
[2021-09-30] MEDS: IBUPROFEN 600 MG TABLET PO ×3 (06:00→21:23)
[2021-09-30] MEDS: ENOXAPARIN 40 MG/0.4 ML SYRINGE SUBCUT (08:52)
[2021-09-30] MEDS: AMLODIPINE 5 MG TABLET PO (08:52)
[2021-09-30] MEDS: CHOLECALCIFEROL (VITAMIN D3) 1,000 UNIT TABLET 2000 UNIT PO (08:52)
--- NOTE | 2021-09-30 09:27 | CM.DANOTE ---
DCP Assessment: Payor: Blaine PCP: Pt is a 76 y.o. F, admitted to the floor following wound that is not getting better and PCP sending her to the ED for management. Pt stated in the ED that in Apr., she had an injury with bruising and it never healed and about 2 weeks ago she saw ortho surgeon and was started on prednisone. MRI was done 3 weeks ago. Cephalexin was ordered by her primary care doctor a few days ago. Pt had a R leg irrigation and debridement yesterday. Pt also has cellulitis of the R leg. IV abx are recommended and pt started. Cultures still pending. DCP met with pt this morning bedside. Pt up in bed eating breakfast. Pt states that she is mostly independent at baseline as she still drives POV and able to mobilize independently. Pt states that she does own a cane and walker but done not use them. Pt states she lives with her in a one story house and has a daughter that lives in [place]. Pt declines any needs for resources at this time. DCP to r/o HH and potential for IV abx. DCP to continue to follow. White board updated and instructed to call. P: Once pt is deemed medically stable for discharge, pt to discharge home via spouse POV with or without HH/IV abx. Lona Tao RN/SOLO Discharge Planning/Care Management CM Discharge Assessment Start: 09/30/21 09:22 Freq: Status: Active Protocol: Document 09/30/21 09:25 ISHAAN (Rec: 09/30/21 09:27 [id number]) Discharge Planning Assessment Assigned Piano Machine Operator Lona Tao RN/SOLO Advance Directives? No History Provided By Patient Prior Living Arrangements House Household Members spouse Type of transporation used prior to Drives own vehicle admit Independent with ADL's Yes Is patient alert and oriented? Yes DME Already Rented / Owned Wheelchair,Cane Discharge Plan Home Referrals Initiated None needed Additional Comment At this time Whiteboard Updated in Patient Room with Yes name and ext. # of Piano Machine Operator Comment Instructed to call Review Status In Process Please Provide Date Initial DC 09/30/21 Assessment Was Performed Next Review Type Continued Stay Review
--- NOTE | 2021-09-30 09:46 | PT.IIE ---
Current Diagnoses Hypo-osmolality and hyponatremia (09/29/21) Cutaneous abscess of right lower limb (09/29/21) Cutaneous abscess of limb, unspecified (09/29/21) Cellulitis of right lower limb (09/29/21) Personal history of other venous thrombosis and embolism (09/29/21) Surgery Performed Operation Date: 09/29/21 13:30 Actual Procedures p Incision and Drainage Wound/Extremity(Right) - Viji Carreon MD Surgical History (Last Reviewed 09/29/21 @ 13:15 by Tyler Carballo MD) H/O hysterectomy with oophorectomy Medical History (Last Reviewed 09/29/21 @ 13:15 by Tyler Carballo MD) Hypertension Osteoarthritis Physical Therapy Inpatient Evaluation/Re-Eval M1 PT/OT-IP Prior Functional Status Start: 09/30/21 08:47 Freq: NEEDED Status: Active Protocol: Document 09/30/21 09:46 AW (Rec: 09/30/21 12:27 AW [id number]) Medical Review Prior Functional Status Medical History Reviewed Yes Communication WNL. Pt is an effective verbal communicator. Mobility and Gait Independent without assistive device. Pt was reaching overhead to get something out of a cabinet in February of last year when she felt a pop in her right achilles. Initiailly, it was ok but fussy and pt was careful with the ankle. It never got better. She saw ortho 3 weeks ago; she was scheduled to begin outpatient PT this week. However, she developed an area of erythema last week which eventually opened and pain worsened. She came to ED yesterday and was taken to OR by ortho for I&D. Activities of Daily Living and IADL's Independent. Prior Functional Level (Other details) Pt enjoys walking paved and forest trails with her spouse, Brian. She has been limited in her ability to participate in this kind of activity for the past few weeks. She expresses a preference for shoes with a bit of a heel lift to offload her Achilles. Social History Household Members spouse Living Arrangements House Number of Floors (Floors) One Floor Number of Stairs To Enter/Railing? 2 [place] with posts on both sides . Home Environment Standard Height Toilet,Walk in Shower,Built-In Shower Seat Home Equipment Hand Held Shower Employment Status Retired Additional Social History Comment Pt lives in [place] with her spouse, Brian, who is in good health and is able to provide assist. M2 PT-IP Current Condition Start: 09/30/21 08:47 Freq: NEEDED Status: Active Protocol: Document 09/30/21 09:46 AW (Rec: 09/30/21 12:27 AW [id number]) Physical Therapy Current Condition Current Condition Evaluation Date 09/30/21 Treatment Diagnosis RLE cellulitis s/p I&D, difficulty in walking Onset Date 09/23/21 M3 PT-IP Subjective Start: 09/30/21 08:47 Freq: NEEDED Status: Active Protocol: Document 09/30/21 09:46 AW (Rec: 09/30/21 12:27 AW [id number]) Subjective Physical Therapy Visit Type Type Initial Evaluation Visit Start Time 09:12 Visit Stop Time 09:46 Total Visit Minutes 34 Notes Pt's spouse was present throughout evaluation. Pt has bulky dressing on right ankle around packed but open wound. Physical Therapy Visit Comments Patient Comments Pt is willing to participate with PT Patient Goals Return home with spouse support. Therapy Pain Assessment Pain When Pain Assessed During Mobility Pain Present Pain Present Pain Reported Location right leg Intensity 2 Scale Used Numeric (0 - 10) Description With Movement Pain Management Techniques Elevation M4 PT-IP Mobility and Gait Start: 09/30/21 08:47 Freq: NEEDED Status: Active Protocol: Document 09/30/21 09:46 AW (Rec: 09/30/21 12:27 AW [id number]) PT-Bed Mobility Assessment Supine to Sit Supine to Sit Independent PT-Transfer Assessment Sit to and From Stand Sit to and from Stand Standby Assistance Equipment Transfer Assistive Device None,Gait Belt,Straight Cane Orthotic/Prosthetic Devices or Brace: No Transfers Transfer Destination Chair Transfer Technique pt ambulated Transfer Ability Level of Assist Standby Assistance Comments Mobility Comments Pt was lying in bed as PT arrived. She was able to sit up EOB without assist. SBA to stand. She ambulated SBA/CGA without AD a total of 160 feet . Weightbearing did increase pain; gait was antalgic. Pt occasionally reached for counters or wall support. On return to the room, PT educated pt on benefit of using a cane at this time and pt was receptive. PT left and returned with [facility], educating pt on rationale for use and proper sequencing in gait. Pt then walked a total of 80 feet with SPC SBA and minor cues for patterning. Pt agreed she felt more stable with cane and stated she would obtain one for home use. Gait Assessment Gait Gait Assistance Required: Standby Assistance,Contact Guard Assist Distance (Feet) 180 Able to Maintain Weight Bearing Status Yes During Gait Assistive Devices Assistive Device None,Gait Belt,Straight Cane Orthotic/Prosthetic Devices or Brace: No Gait Deviations General Gait Pattern Antalgic,Decreased Stride Length,Decreased Feet Clearance,Step-to Gait Factors Limiting Gait Function Factors Limiting Gait Function Decreased Strength,Limited Range of Motion,Pain,Poor Balance Comments Gait Comments See mobility comments for details. Stair Climbing Assessment Evaluation Level of Assist On Stairs Standby Assistance Devices Stair Climbing Assistive Devices Left Railing Technique/Endurance Stair Climbing Direction Ascend and Descend Stair Climbing Technique Step Over Step Number of Steps Climbed 4 Query Text: Stair Climbing Set # Repetitions (reps) 1 Comments Stair Climbing Comments Pt stated she has been doing stairs step-to but wanted to try step over step today. She was able to negotiate 4 steps with unilateral rail but decreased stability RLE. PT encouraged pt to continue with step-to pattern for now. PT-Balance Assessment Sitting Balance and Reactions Static Sitting Balance Ability Normal Dynamic Sitting Balance Ability Normal Standing Balance and Reactions Static Standing Balance Ability Good Dynamic Standing Balance Ability Good Device Used none; SPC M5 PT-IP Objective Assessments Start: 09/30/21 08:47 Freq: NEEDED Status: Active Protocol: Document 09/30/21 09:46 AW (Rec: 09/30/21 12:27 AW [id number]) Orientation Orientation/Cognition Level of Alertness Alert Orientation Name,Day of Week,Place, Situation Language Function Ability No Deficits Noted Safety Awareness Understands Safety Issues Memory Description No Deficits Noted Gross Range of Motion Lower Extremity ROM Assessment Right Impaired Impairments DF lacking 0-5 degrees to neutral secondary to pain. Strength Lower Extremity Strength Assessment Right Impaired Hip 4+/5 Knee 4+/5 Ankle 3-/5 Comments Strength Comments LLE grossly 4+/5 Sensation Assessment Sensation Gross Sensation WNL M6 PT-IP Treatment Start: 09/30/21 08:47 Freq: NEEDED Status: Active Protocol: Document 09/30/21 09:46 AW (Rec: 09/30/21 12:27 AW [id number]) Physical Therapy Treatment Exercises Exercises Ankle Pumps Education Education Provided Weight Bearing Status,Safety Other Treatments Other Treatment Performed Gait training as noted above. M7 PT-IP Assessment and Plan Start: 09/30/21 08:47 Freq: NEEDED Status: Active Protocol: Document 09/30/21 09:46 AW (Rec: 09/30/21 12:27 AW [id number]) PT Summary Assessment and Plan Potential Rehabilitation Potential Good Status of Condition at Evaluation Evolving Summary Impairments Pain,ROM,Strength,Balance,Gait Assessment Summary Dolores is a 76 yo woman seen for PT evaluation on POD1 following I&D of right Achilles abscess. She is typically independent in all regards. On assessment today, pt require SBA/CGA for ambulation without AD and no more than SBA for ambulation with SPC. PT recommends use of cane at this time for increased base of support to improve pt's stability. Pt would benefit from continued acute PT to continue gait training. She was scheduled for outpatient PT evaluation with this PT tomorrow but will now defer until seen by ortho in follow up. Goals Gait Goal Independent,Cane Gait Distance 250 Other Goals - up/down 2 steps with unilateral rails and/or SPC IND Days to Meet Goals 2 Frequency of Treatment Frequency Of Treatment Once a Day Treatment Plan Physical Therapy Treatment Plan Gait Training,Therapeutic Exercise,Balance Retraining, Discharge Planning,Hot or Cold Pack Other Recommendations and Next Treatment gait and stairs with SPC; AROM Focus R ankle Weight Bearing Status Weight Bearing Status Full Weight Bearing Allowed Weight Bearing Amount (enter % RLE full weightbearing per or #) (%) ortho order Recommendations To Nursing Amount of Assist Needed Standby Assistance Discharge Recommendations PT Discharge Recommendations Home with Assistance, Outpatient PT Transportation Needs at Discharge Private Vehicle
--- NOTE | 2021-09-30 10:52 | P.PN_ITS ---
Subjective Subjective Date Patient Seen: 09/30/21 Time Patient Seen: 08:30 Interval history: CC: leg wound s/p washout in OR by Dr. Carreon leg feeling ok this morning she is able to bear weight on it and ambulate around appetite ok cellulitis does look to be improving she is on iv ABX Exam Vital Signs (past 8 hours): - 09/30/21 04:00 09/30/21 07:25 Temperature 97.2 F L 98.4 F Pulse Rate 76 68 Respiratory Rate 16 17 Blood Pressure 133/75 120/64 Pulse Oximetry 99 100 Oxygen Flow Rate 0 Oxygen Delivery Method Room Air Oxygen Flow Rate 0 Narrative Exam Narrative: standing at sink performing ablutions Const General: cooperative, comfortable and well developed HENLA Head: normocephalic and atraumatic Resp Other: moving air well clear to auscultation bilaterally Cardio Other: regular rate S1/S2 GI Other: soft nontender nondistended normal bowel sounds Skin Other: beefy stippled celulitis on RLE is subsiding not continuing to spread and swelling is subsiding Neuro General: patient alert, patient awake, patient oriented x3, moves all extremities and CN's II-XI intact bilaterally Extrem General: full ROM and other (cellulitis) Other: RLE medial ankle wound still under dry dressing. distal DP pulse intact. Psych Appearance: grossly normal and well kempt Objective Labs Result Diagrams: 09/30/21 05:26 09/29/21 10:54 Labs: Laboratory Results - last 24 hr 09/29/21 09/29/21 09/29/21 10:40 10:54 10:54 WBC 13.1 H RBC 3.99 L Hgb 11.4 L Hct 33.3 L MCV 83.5 MCH 28.5 MCHC 34.2 RDW 13.8 Plt Count 364 Neut % (Auto) 81.3 H Lymph % (Auto) 10.8 L [place] % (Auto) 7.2 Eos % (Auto) 0.3 L Baso % (Auto) 0.4 Neut # (Auto) 20485 H Lymph # (Auto) 1400 [place] # (Auto) 900 Eos # (Auto) 0 Baso # (Auto) 0 ESR Sodium 122 L Potassium 4.0 Chloride 88 L Carbon Dioxide 24 BUN 19 H Creatinine 0.60 Estimated GFR > 60 BUN/Creatinine Ratio 31.7 H Glucose 85 Lactate Calcium 7.7 L Total Bilirubin 0.8 AST 26 ALT 19 Alkaline Phosphatase 39 C-Reactive Protein Total Protein 6.5 Albumin 4.0 Globulin 2.5 Albumin/Globulin Ratio 1.6 Lipase 153 Procalcitonin 0.09 SARS-CoV-2 (PCR) Negative 09/29/21 09/29/21 09/29/21 10:54 10:54 10:54 WBC RBC Hgb Hct MCV MCH MCHC RDW Plt Count Neut % (Auto) Lymph % (Auto) [place] % (Auto) Eos % (Auto) Baso % (Auto) Neut # (Auto) Lymph # (Auto) [place] # (Auto) Eos # (Auto) Baso # (Auto) ESR 33 H Sodium Potassium Chloride Carbon Dioxide BUN Creatinine Estimated GFR BUN/Creatinine Ratio Glucose Lactate 0.6 L Calcium Total Bilirubin AST ALT Alkaline Phosphatase C-Reactive Protein 14.3 H Total Protein Albumin Globulin Albumin/Globulin Ratio Lipase Procalcitonin SARS-CoV-2 (PCR) 09/30/21 05:26 WBC 9.8 RBC 3.78 L Hgb 10.9 L Hct 31.6 L MCV 83.7 MCH 28.8 MCHC 34.4 RDW 13.6 Plt Count 342 Neut % (Auto) Lymph % (Auto) [place] % (Auto) Eos % (Auto) Baso % (Auto) Neut # (Auto) Lymph # (Auto) [place] # (Auto) Eos # (Auto) Baso # (Auto) ESR Sodium Potassium Chloride Carbon Dioxide BUN Creatinine Estimated GFR BUN/Creatinine Ratio Glucose Lactate Calcium Total Bilirubin AST ALT Alkaline Phosphatase C-Reactive Protein Total Protein Albumin Globulin Albumin/Globulin Ratio Lipase Procalcitonin SARS-CoV-2 (PCR) PFSH Medical History Hypertension Osteoarthritis Surgical History H/O hysterectomy with oophorectomy Family History Father Stroke Social History household members: spouse Smoking Status: Never smoker alcohol intake: current substance use type: does not use Assessment & Plan Assessment & Plan narrative: #RLE cellulitis with abcess continue IV abx - failed outpt tx with keflex s/p washout by Dr. Carreon in OR, under dry dressing today able to bear weight #HTN continue home amlodipine 5mg in am #osteoporosis receives alendronate qweek each Thursday, hold while inpatient for now dispo: still needing IV abx; pending input from ortho may be able to go home on oral meds DVT ppx: lovenox and scds diet: regular code: DNR MDM: Omar Torres [phone] PCP: Maria Alejandra Beltran Time Spent With Patient Critical Care time: I spent a total of [] minutes of critical care time on this patient's care today; this time is exclusive of procedural time.
[2021-09-30] MEDS: cefTRIAXone 2,000 MG in SODIUM CHLORIDE 0.9% 100 ML 200 MG IV (11:46)
--- NOTE | 2021-09-30 15:47 | PM.PNPO.1 ---
Subjective Subjective Date Patient Seen: 09/30/21 Time Patient Seen: 12:30 Interval history: Sitting up in chair, comfortable, quite helpful with exam. Exam Vital Signs (past 8 hours): - 09/30/21 11:00 Temperature 98.2 F Pulse Rate 71 Respiratory Rate 20 Blood Pressure 141/81 H Oxygen Flow Rate 0 Oxygen Delivery Method Room Air Oxygen Flow Rate 0 Narrative Exam Narrative: Medial ankle wound appears to have clean edges, no necrotic tissue noted. Repacked with wet NuGauze and dry sterile gauze with soft dressing. Erythema extends through distal 1/3 of leg; pt states this is improving. WBC now WNL. IV vanco and ceftriaxone continue. Objective Labs Result Diagrams: 09/30/21 05:26 09/29/21 10:54 Labs: Laboratory Results - last 24 hr 09/30/21 05:26 WBC 9.8 RBC 3.78 L Hgb 10.9 L Hct 31.6 L MCV 83.7 MCH 28.8 MCHC 34.4 RDW 13.6 Plt Count 342 PFSH Medical History Hypertension Osteoarthritis Surgical History H/O hysterectomy with oophorectomy Family History Father Stroke Social History household members: spouse Smoking Status: Never smoker alcohol intake: current substance use type: does not use Assessment & Plan Post-op Assessment and plan (1) Abscess of ankle: Assessment and Plan narrative: Will consult wound care nurse for recommendations. Continue current antibiotic regimen, will follow for cultures. (2) Cellulitis of leg without foot, right: (3) History of DVT of lower extremity: Assessment and Plan narrative: Ultrasound RLE. Continue enoxaparin for VTE prophylaxis. Postoperative Procedures: Procedures Operation Date: 09/29/21 13:30 Actual Procedure Side Surgeon p Incision and Drainage Wound/Extremity Right Viji Carreon MD Postoperative day: 1
[2021-09-30] MEDS: MAGNESIUM HYDROXIDE 30 ML UDC PO (21:23)
[2021-09-30] MEDS: DOCUSATE 100 MG CAPSULE PO (21:24)
[2021-10-01] VITALS (7 sets, daily range): BP systolic 126–144; BP diastolic 68–77; PULSE 64–76; RESP 12–16; TEMP 36.3–37.2; O2SAT 95–100
[2021-10-01] MEDS: VANCOMYCIN 1,000 MG/200 ML PIGGYBACK 200 MG IV (00:30)
[2021-10-01] MEDS: SODIUM CHLORIDE 0.9% FLUSH 10 ML IV ×2 (00:31→09:06)
[2021-10-01] MEDS: IBUPROFEN 600 MG TABLET PO ×3 (06:49→21:52)
--- NOTE | 2021-10-01 08:25 | P.PN_ITS ---
Subjective Subjective Date Patient Seen: 10/01/21 Time Patient Seen: 07:45 Interval history: Patient's pain is mild. Denies fever or chills. No nausea or vomiting. Exam Vital Signs (past 8 hours): - 10/01/21 02:19 Temperature 98.5 F Pulse Rate 64 Respiratory Rate 16 Blood Pressure 135/77 Pulse Oximetry 95 Oxygen Flow Rate 0 Oxygen Delivery Method Room Air Oxygen Flow Rate 0 Narrative Exam Narrative: 76-year-old female resting comfortably in bed in no apparent distress. Dressing in place. Mild erythema noted about the right ankle. Const General: cooperative and comfortable Objective Labs Result Diagrams: 09/30/21 05:26 09/29/21 10:54 Labs: Procedure Result Verified Site Gram Stain Final 09/29/21- 1423 No Organism Seen No organisms seen White blood cells No WBC seen Epithelial cells None seen Aerobic Culture for wounds Final 10/01/21- 812 Group B Strep pos Organism 1 Strep agalactiae - (group b) Growth LIGHT Action to follow Further Workup Upon Request All Beta-hemolytic Streptococcus organisms are considered sensitive to penicillins and cephalosporins. Anaerobic Culture Final 09/29/211423 Test not performed END OF REPORT [facility] Medical History Hypertension Osteoarthritis Surgical History H/O hysterectomy with oophorectomy Family History Father Stroke Social History household members: spouse Smoking Status: Never smoker alcohol intake: current substance use type: does not use Assessment & Plan Post-op Postoperative Procedures: Procedures Operation Date: 09/29/21 13:30 Actual Procedure Side Surgeon p Incision and Drainage Wound/Extremity Right Viji Carreon MD Postoperative day: 2 Postoperative status: doing well Postoperative status narrative: Stable status post right leg irrigation debridement secondary to right leg abscess on September 29, 2021 Postoperative plan narrative: Wound care nurse to consult Waiting for sensitivities Follow-up with [facility] in 2 weeks Discharge on antibiotics per hospitalist when medically stable.
[2021-10-01] MEDS: AMLODIPINE 5 MG TABLET PO (08:41)
[2021-10-01] MEDS: DOCUSATE 100 MG CAPSULE PO (08:42)
[2021-10-01] MEDS: ENOXAPARIN 40 MG/0.4 ML SYRINGE SUBCUT (08:42)
[2021-10-01] MEDS: CHOLECALCIFEROL (VITAMIN D3) 1,000 UNIT TABLET 2000 UNIT PO (08:42)
--- NOTE | 2021-10-01 08:47 | PM.PN.1 ---
Subjective Subjective Date Patient Seen: 10/01/21 Time Patient Seen: 08:47 Interval history: Patient feeling better today. Less pain. No other changes. Wound cares not seen her yet. Apparently has history of hyponatremia. Exam Vital Signs (past 8 hours): - 10/01/21 02:19 10/01/21 07:00 10/01/21 07:33 Temperature 98.5 F 98.3 F Pulse Rate 64 67 Respiratory Rate 16 16 Blood Pressure 135/77 127/77 Pulse Oximetry 95 98 98 Oxygen Delivery Method Room Air Oxygen Flow Rate 0 Oxygen Delivery Method Room Air Oxygen Flow Rate 0 Narrative Exam Narrative: Alert female in no acute distress lungs are clear heart regular rate and rhythm right ankle is bandaged Objective Labs Result Diagrams: 09/30/21 05:26 09/29/21 10:54 PFSH Medical History Hypertension Osteoarthritis Surgical History H/O hysterectomy with oophorectomy Family History Father Stroke Social History household members: spouse Smoking Status: Never smoker alcohol intake: current substance use type: does not use Assessment & Plan Assessment & Plan narrative: Cellulitis with abscess. Status post drainage. Waiting Wound Care to evaluate for wound treatment. Culture is growing staph. Seems to be sensitive to penicillins. Will add Augmentin. Discontinue IV therapy. Add acidophilus. Follow. Hyponatremia. Patient with history but trending downward. Will switch to normal saline and due fluid restrictions repeat a.m.. Osteoporosis. Stable. Disposition. Hopefully home tomorrow. Will see how things go. Time Spent With Patient Critical Care time: I spent a total of [] minutes of critical care time on this patient's care today; this time is exclusive of procedural time.
[2021-10-01] MEDS: AMOXICILLIN/CLAV 875/125 MG 1 TAB PO ×2 (09:06→20:13)
[2021-10-01] MEDS: SODIUM CHLORIDE 0.9% 1,000 ML 100 ML IV ×2 (09:06→21:30)
--- NOTE | 2021-10-01 10:51 | PT.IPTN ---
Current Diagnoses Hypo-osmolality and hyponatremia (09/29/21) Cutaneous abscess of right lower limb (09/29/21) Cutaneous abscess of limb, unspecified (09/29/21) Cellulitis of right lower limb (09/29/21) Personal history of other venous thrombosis and embolism (09/29/21) Surgery Performed Operation Date: 09/29/21 13:30 Actual Procedures p Incision and Drainage Wound/Extremity(Right) - Viji Carreon MD Physical Therapy Treatment Note M2 PT-IP Current Condition Start: 09/30/21 08:47 Freq: NEEDED Status: Active Protocol: Document 09/30/21 09:46 AW (Rec: 09/30/21 12:27 AW [id number]) Physical Therapy Current Condition Current Condition Evaluation Date 09/30/21 Treatment Diagnosis RLE cellulitis s/p I&D, difficulty in walking Onset Date 09/23/21 M3 PT-IP Subjective Start: 09/30/21 08:47 Freq: NEEDED Status: Active Protocol: Document 10/01/21 10:31 KS (Rec: 10/01/21 12:09 KS [id number]) Subjective Physical Therapy Visit Type Type Treatment Note Visit Start Time 10:31 Visit Stop Time 10:51 Total Visit Minutes 20 Physical Therapy Visit Comments Patient Comments Pt is willing to participate with PT M4 PT-IP Mobility and Gait Start: 09/30/21 08:47 Freq: NEEDED Status: Active Protocol: Document 10/01/21 10:31 KS (Rec: 10/01/21 12:09 KS [id number]) PT-Bed Mobility Assessment Sit to Supine Sit to Supine Standby Assistance Scooting Scooting to Edge of Bed Independent Scooting Up and Down in Bed Independent PT-Transfer Assessment Sit to and From Stand Sit to and from Stand Independent,Standby Assistance Equipment Transfer Assistive Device None,Gait Belt,Straight Cane Orthotic/Prosthetic Devices or Brace: No Transfers Transfer Destination Bed Transfer Technique pt ambulated Transfer Ability Level of Assist Independent,Standby Assistance Comments Mobility Comments Pt in chair upon arrival and stood up independetly. Placed gait belt and provided SPC. Pt agreeable to ambulate and ambulated ~50 ft w/ SPC, but is unfamiliar and had some difficulty using it correctly seemingly overthinking when to progress cane and leg. Trialed ambulation w/o AD and pt had more fluid normalized gait and no LOB. Pt ambulated ~100 ft w/o AD SBA and returned to room and bed. Pt left in bed w/ all needs in reach. Gait Assessment Gait Gait Assistance Required: Independent,Standby Assistance ,1 Person Assist Distance (Feet) 150 Able to Maintain Weight Bearing Status Yes During Gait Assistive Devices Assistive Device None,Gait Belt,Straight Cane Orthotic/Prosthetic Devices or Brace: No Gait Deviations General Gait Pattern Antalgic,Decreased Stride Length,Decreased Feet Clearance,Step-to Gait Factors Limiting Gait Function Factors Limiting Gait Function Decreased Strength,Limited Range of Motion,Pain,Poor Balance Comments Gait Comments See mobility comments for details. PT-Balance Assessment Sitting Balance and Reactions Static Sitting Balance Ability Normal Dynamic Sitting Balance Ability Normal Standing Balance and Reactions Static Standing Balance Ability Good Dynamic Standing Balance Ability Good Device Used none; SPC M5 PT-IP Objective Assessments Start: 09/30/21 08:47 Freq: NEEDED Status: Active Protocol: Document 09/30/21 09:46 AW (Rec: 09/30/21 12:27 AW [id number]) Orientation Orientation/Cognition Level of Alertness Alert Orientation Name,Day of Week,Place, Situation Language Function Ability No Deficits Noted Safety Awareness Understands Safety Issues Memory Description No Deficits Noted Gross Range of Motion Lower Extremity ROM Assessment Right Impaired Impairments DF lacking 0-5 degrees to neutral secondary to pain. Strength Lower Extremity Strength Assessment Right Impaired Hip 4+/5 Knee 4+/5 Ankle 3-/5 Comments Strength Comments LLE grossly 4+/5 Sensation Assessment Sensation Gross Sensation WNL M6 PT-IP Treatment Start: 09/30/21 08:47 Freq: NEEDED Status: Active Protocol: Document 10/01/21 10:31 KS (Rec: 10/01/21 12:09 KS [id number]) Physical Therapy Treatment Education Education Provided Weight Bearing Status,Safety Other Treatments Other Treatment Performed Gait training as noted above. M7 PT-IP Assessment and Plan Start: 09/30/21 08:47 Freq: NEEDED Status: Active Protocol: Document 10/01/21 10:31 KS (Rec: 10/01/21 12:09 KS [id number]) PT Summary Assessment and Plan Potential Rehabilitation Potential Good Status of Condition at Evaluation Evolving Summary Impairments Pain,ROM,Strength,Balance,Gait Progress Towards Goals Progressing Toward Goals Assessment Summary Pt mobilzing well, only needing SBA this treatment. Pt had some difficulty using SPCand advancing at correct time but w/o AD had more normalized gait. Pt plans to purchase SPC on her way home for additional support when needing, but was safe w/o this date. She plans to have outpatient PT in the near future following ortho follow up. States she feels physically able to return home when medically stable. Goals Gait Goal Independent,Cane Gait Distance 250 Other Goals - up/down 2 steps with unilateral rails and/or SPC IND Days to Meet Goals 2 Frequency of Treatment Frequency Of Treatment Once a Day Treatment Plan Physical Therapy Treatment Plan Gait Training,Therapeutic Exercise,Balance Retraining, Discharge Planning,Hot or Cold Pack Other Recommendations and Next Treatment gait and stairs with SPC; AROM Focus R ankle Weight Bearing Status Weight Bearing Status Full Weight Bearing Allowed Weight Bearing Amount (enter % RLE full weightbearing per or #) (%) ortho order Recommendations To Nursing Amount of Assist Needed Standby Assistance Discharge Recommendations PT Discharge Recommendations Home with Assistance, Outpatient PT Transportation Needs at Discharge Private Vehicle
--- NOTE | 2021-10-01 11:10 | PC.RNWOUND ---
Addendum entered by Jacquelyn Burrell R.N. 10/01/21 12:05: Wound measurements are 3.8 x 2.4 x 1cm with undermining measurements already given. Addendum entered by Jacquelyn Burrell R.N. 10/01/21 11:53: (cont.) erythema extending to 3cm past inferior wound edge. Wound edges are well-defined, 1.1cm undermining is noted from 1-6 o'clock and 0.5cm undermining noted from 7-11 o'clock. Wound base is 100% yellow adherent fibrinous tissue. Wound is gently cleansed with saline and dressed to orders. Patient says she doesn't know how wound started, denies numbness/tingling, able to wiggle toes. Patient denies pain during wound cares. Recommendation is to follow up at wound clinic and antimicrobial foam dressing for discharge. Original Note: Patient resting in bed after shower, dressing removed to right medial ankle surgical wound. Removed dressing has a moderate amount of serous drainage, erythema noted from lower calf extending to
[2021-10-01] MEDS: LACTOBACILLUS ACIDOPHILUS TABLET 1 EACH PO ×2 (12:51→18:04)
[2021-10-01 13:31] LABS: Vancomycin Trough 10.1 ug/mL (10-20)
[2021-10-01 16:13] LABS: Vancomycin Peak 8.6 ug/mL (20-40)
--- NOTE | 2021-10-01 21:12 | PC.NURSE ---
Patient is alert and oriented. Breath sounds CTA with RA sat of 99%. HRR. Denied nausea. BT present and is passing flatus and had a BM earlier today. Denied dysuria, frequency or urgency with urination. Is able to turn self in bed. Up to bathroom with cane and SBA due to some weakness in right LE. Dressing to right foot/ankle is CDI. Has erythema extending up to mid foster anteriorly and mid calf posteriorly. Skin is warm to touch and leg is edematous. Denied pain. Calf SCD applied to left leg. Is currently on a fluid restriction. Fall risk score is high and bed alarm is activated.
[2021-10-02] VITALS (7 sets, daily range): BP systolic 122–148; BP diastolic 67–83; PULSE 65–86; RESP 16–18; TEMP 36.6–37.2; O2SAT 96–100
[2021-10-02 05:56] LABS: Add Manual Diff / Slide Review NO; Basophils Absolute Auto 0 /uL (0-100); Basophils Percent Auto 0.8 % (0-2); Eosinophils Absolute Auto 100 /uL (0-450); Eosinophils Percent Auto 2.1 % (2-4); Hematocrit 33.8 % (36-46); Hemoglobin 11.7 g/dL (12.0-16.0); Lymphocytes Absolute Auto 1100 /uL (1100-4500); Lymphocytes Percent Auto 20.7 % (25-40); Mean Corpuscular HGB Conc 34.6 % (30-36); Mean Corpuscular Hemoglobin 28.9 PG (26-34); Mean Corpuscular Volume 83.6 fL (80-100); Monocytes Absolute Auto 400 /uL (0-900); Monocytes Percent Auto 7.8 % (3-14); Neutrophils Absolute Auto 3800 /uL (1500-7000); Neutrophils Percent Auto 68.6 % (50-75); Platelet Count 346 X10^3/uL (150-400); Red Blood Cell Count 4.05 X10^6/uL (4.0-5.2); Red Cell Distribution Width 13.8 % (11.6-14.8); White Blood Cell Count 5.5 X10^3/uL (4.5-11.0)
[2021-10-02] MEDS: IBUPROFEN 600 MG TABLET PO ×2 (06:04→21:52)
[2021-10-02 06:37] LABS: BUN Creatinine Ratio 26.5 (6-22); Blood Urea Nitrogen 13 mg/dL (7-17); Calcium 7.8 mg/dL (8.4-10.2); Carbon Dioxide 25 mmol/L (22-32); Chloride 98 mmol/L (98-107); Estimated Glomerular Filt Rate > 60 mL/min (>60); Glucose 90 mg/dL (80-110); HEMOLYSIS < 15 (0-50); Potassium 4.1 mmol/L (3.4-5.1); Sodium 128 mmol/L (137-145)
[2021-10-02] MEDS: CHOLECALCIFEROL (VITAMIN D3) 1,000 UNIT TABLET 2000 UNIT PO (08:10)
[2021-10-02] MEDS: ENOXAPARIN 40 MG/0.4 ML SYRINGE SUBCUT (08:10)
[2021-10-02] MEDS: LACTOBACILLUS ACIDOPHILUS TABLET 1 EACH PO ×3 (08:10→16:44)
[2021-10-02] MEDS: AMLODIPINE 5 MG TABLET PO (08:10)
[2021-10-02] MEDS: AMOXICILLIN/CLAV 875/125 MG 1 TAB PO (08:10)
[2021-10-02] MEDS: SODIUM CHLORIDE 0.9% FLUSH 10 ML IV (08:11)
--- NOTE | 2021-10-02 08:32 | P.PN_ITS ---
Exam Vital Signs (past 8 hours): - 10/02/21 05:50 10/02/21 07:41 10/02/21 08:19 Temperature 98.6 F 98.2 F Pulse Rate 68 65 Respiratory Rate 16 18 Blood Pressure 133/67 122/71 Pulse Oximetry 98 96 100 Oxygen Delivery Method Room Air Oxygen Flow Rate 0 0 0 Oxygen Delivery Method Room Air Oxygen Flow Rate 0 Objective Labs Result Diagrams: 10/02/21 05:38 10/02/21 05:38 Labs: Laboratory Results - last 24 hr 10/01/21 10/01/21 10/02/21 12:40 15:23 05:38 WBC 5.5 RBC 4.05 Hgb 11.7 L Hct 33.8 L MCV 83.6 MCH 28.9 MCHC 34.6 RDW 13.8 Plt Count 346 Neut % (Auto) 68.6 Lymph % (Auto) 20.7 L [place] % (Auto) 7.8 Eos % (Auto) 2.1 Baso % (Auto) 0.8 Neut # (Auto) 3800 Lymph # (Auto) 1100 [place] # (Auto) 400 Eos # (Auto) 100 Baso # (Auto) 0 Sodium Potassium Chloride Carbon Dioxide BUN Creatinine Estimated GFR BUN/Creatinine Ratio Glucose Calcium Vancomycin Peak 8.6 L Vancomycin Trough 10.1 10/02/21 05:38 WBC RBC Hgb Hct MCV MCH MCHC RDW Plt Count Neut % (Auto) Lymph % (Auto) [place] % (Auto) Eos % (Auto) Baso % (Auto) Neut # (Auto) Lymph # (Auto) [place] # (Auto) Eos # (Auto) Baso # (Auto) Sodium 128 L Potassium 4.1 Chloride 98 Carbon Dioxide 25 BUN 13 Creatinine 0.49 L Estimated GFR > 60 BUN/Creatinine Ratio 26.5 H Glucose 90 Calcium 7.8 L Vancomycin Peak Vancomycin Trough PFSH Medical History Hypertension Osteoarthritis Surgical History H/O hysterectomy with oophorectomy Family History Father Stroke Social History household members: spouse Smoking Status: Never smoker alcohol intake: current substance use type: does not use Assessment & Plan Assessment & Plan narrative: doing well Postoperative status narrative: Stable status post right leg irrigation debridement secondary to right leg abscess on September 29, 2021 Postoperative plan narrative: Wound care nurse to consult Waiting for sensitivities Follow-up with [facility] in 2 weeks Discharge on antibiotics per hospitalist when medically stable. Time Spent With Patient Critical Care time: I spent a total of [] minutes of critical care time on this patient's care today; this time is exclusive of procedural time.
--- NOTE | 2021-10-02 08:33 | P.PN_ITS ---
Subjective Subjective Date Patient Seen: 10/02/21 Time Patient Seen: 08:37 Interval history: Patient is complaining of mild right ankle pain. 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 She notes she has baseline erythema. Patient also notes she had an possible wound care appointment schedule as an outpatient this last week. She denies any fevers, chills, night sweats. Exam Vital Signs (past 8 hours): - 10/02/21 05:50 10/02/21 07:41 10/02/21 08:19 Temperature 98.6 F 98.2 F Pulse Rate 68 65 Respiratory Rate 16 18 Blood Pressure 133/67 122/71 Pulse Oximetry 98 96 100 Oxygen Delivery Method Room Air Oxygen Flow Rate 0 0 0 Oxygen Delivery Method Room Air Oxygen Flow Rate 0 Narrative Exam Narrative: Pleasant 76-year-old female, resting comfortably in bed, no acute distress. Dressing demonstrates a serous, straw-colored discharge her medial malleolus area. There is [id number] erythema streaking up the anterior portion of her foster and her lower 3rd of her right lower extremity. she is able to wiggle her toes. Bilateral calves are soft and nontender to palpation. Objective Labs Result Diagrams: 10/02/21 05:38 10/02/21 05:38 Labs: Laboratory Results - last 24 hr 10/01/21 10/01/21 10/02/21 12:40 15:23 05:38 WBC 5.5 RBC 4.05 Hgb 11.7 L Hct 33.8 L MCV 83.6 MCH 28.9 MCHC 34.6 RDW 13.8 Plt Count 346 Neut % (Auto) 68.6 Lymph % (Auto) 20.7 L [place] % (Auto) 7.8 Eos % (Auto) 2.1 Baso % (Auto) 0.8 Neut # (Auto) 3800 Lymph # (Auto) 1100 [place] # (Auto) 400 Eos # (Auto) 100 Baso # (Auto) 0 Sodium Potassium Chloride Carbon Dioxide BUN Creatinine Estimated GFR BUN/Creatinine Ratio Glucose Calcium Vancomycin Peak 8.6 L Vancomycin Trough 10.1 10/02/21 05:38 WBC RBC Hgb Hct MCV MCH MCHC RDW Plt Count Neut % (Auto) Lymph % (Auto) [place] % (Auto) Eos % (Auto) Baso % (Auto) Neut # (Auto) Lymph # (Auto) [place] # (Auto) Eos # (Auto) Baso # (Auto) Sodium 128 L Potassium 4.1 Chloride 98 Carbon Dioxide 25 BUN 13 Creatinine 0.49 L Estimated GFR > 60 BUN/Creatinine Ratio 26.5 H Glucose 90 Calcium 7.8 L Vancomycin Peak Vancomycin Trough PFSH Medical History Hypertension Osteoarthritis Surgical History H/O hysterectomy with oophorectomy Family History Father Stroke Social History household members: spouse Smoking Status: Never smoker alcohol intake: current substance use type: does not use Assessment & Plan Post-op Postoperative Procedures: Procedures Operation Date: 09/29/21 13:30 Actual Procedure Side Surgeon p Incision and Drainage Wound/Extremity Right Viji Carreon MD Postoperative day: 3 Postoperative status narrative: -slow resolution of right leg cellulitis -stable status post right leg irrigation debridement secondary to right leg abscess on September 29, 2021 Postoperative plan narrative: -Wound care nurse to consult - right ankle wound + group G strep, assumed sensitivities to penicillins and cephalexins - Dr. Carreon is concerned about the erythema in her ankle/ lower extremity. Last dose of IV vancomycin was on 09/30 at 1417. patient has been transitioned to Augmentin b.i.d. - Dr. Carreon would like to keep her another 24 hours for IV antibiotics. -Follow-up with [facility] in 2 weeks -Discharge on antibiotics per hospitalist when medically stable.
--- NOTE | 2021-10-02 09:15 | PT.IPTN ---
Current Diagnoses Hypo-osmolality and hyponatremia (09/29/21) Cutaneous abscess of right lower limb (09/29/21) Cutaneous abscess of limb, unspecified (09/29/21) Cellulitis of right lower limb (09/29/21) Personal history of other venous thrombosis and embolism (09/29/21) Surgery Performed Operation Date: 09/29/21 13:30 Actual Procedures p Incision and Drainage Wound/Extremity(Right) - Viji Carreon MD Physical Therapy Treatment Note M2 PT-IP Current Condition Start: 09/30/21 08:47 Freq: NEEDED Status: Active Protocol: Document 09/30/21 09:46 AW (Rec: 09/30/21 12:27 AW [id number]) Physical Therapy Current Condition Current Condition Evaluation Date 09/30/21 Treatment Diagnosis RLE cellulitis s/p I&D, difficulty in walking Onset Date 09/23/21 M3 PT-IP Subjective Start: 09/30/21 08:47 Freq: NEEDED Status: Active Protocol: Document 10/02/21 08:54 KS (Rec: 10/02/21 09:31 KS [id number]) Subjective Physical Therapy Visit Type Type Treatment Note Visit Start Time 08:54 Visit Stop Time 09:15 Total Visit Minutes 21 Number of CLIENT SUPPORT ANALYST Visits 2 Physical Therapy Visit Comments Patient Comments Pt is willing to participate with PT. present. M4 PT-IP Mobility and Gait Start: 09/30/21 08:47 Freq: NEEDED Status: Active Protocol: Document 10/02/21 08:54 KS (Rec: 10/02/21 09:31 KS [id number]) PT-Bed Mobility Assessment Sit to Supine Sit to Supine Independent Scooting Scooting to Edge of Bed Independent Scooting Up and Down in Bed Independent PT-Transfer Assessment Sit to and From Stand Sit to and from Stand Independent Equipment Transfer Assistive Device None,Gait Belt Orthotic/Prosthetic Devices or Brace: No Transfers Transfer Destination Bed Transfer Technique pt ambulated Transfer Ability Level of Assist Independent,Standby Assistance Comments Mobility Comments Pt in bed upon arrival w/ in room. Pt able to get out of bed an mobilize independently. She ambulated ~ [address] w/o AD while safely managed IV pole. Pt feels comfortable to move around in room w/o assistance. RN notified. Gait Assessment Gait Gait Assistance Required: Independent,Standby Assistance ,1 Person Assist Distance (Feet) 200 Able to Maintain Weight Bearing Status Yes During Gait Assistive Devices Assistive Device None,Gait Belt Orthotic/Prosthetic Devices or Brace: No Gait Deviations General Gait Pattern Antalgic,Decreased Stride Length,Decreased Feet Clearance Factors Limiting Gait Function Factors Limiting Gait Function Decreased Strength,Limited Range of Motion,Pain,Poor Balance Comments Gait Comments Pt ambulating w/o AD and no LOB present. Pt tends to ambulate on lateral aspect of foot, but improved w/ cues for heel toe walking. Offers that pain is not too bad. Stair Climbing Assessment Comments Stair Climbing Comments Pt feels comfortable to perform stairs at home. PT-Balance Assessment Sitting Balance and Reactions Static Sitting Balance Ability Normal Dynamic Sitting Balance Ability Normal Standing Balance and Reactions Static Standing Balance Ability Good Dynamic Standing Balance Ability Good Device Used none M5 PT-IP Objective Assessments Start: 09/30/21 08:47 Freq: NEEDED Status: Active Protocol: Document 09/30/21 09:46 AW (Rec: 09/30/21 12:27 AW [id number]) Orientation Orientation/Cognition Level of Alertness Alert Orientation Name,Day of Week,Place, Situation Language Function Ability No Deficits Noted Safety Awareness Understands Safety Issues Memory Description No Deficits Noted Gross Range of Motion Lower Extremity ROM Assessment Right Impaired Impairments DF lacking 0-5 degrees to neutral secondary to pain. Strength Lower Extremity Strength Assessment Right Impaired Hip 4+/5 Knee 4+/5 Ankle 3-/5 Comments Strength Comments LLE grossly 4+/5 Sensation Assessment Sensation Gross Sensation WNL M6 PT-IP Treatment Start: 09/30/21 08:47 Freq: NEEDED Status: Active Protocol: Document 10/02/21 08:54 KS (Rec: 10/02/21 09:31 KS [id number]) Physical Therapy Treatment Education Education Provided Weight Bearing Status,Safety Other Treatments Other Treatment Performed Gait training as noted above. Suggested use of SPC on stairs , pt agreeable. M7 PT-IP Assessment and Plan Start: 09/30/21 08:47 Freq: NEEDED Status: Active Protocol: Document 10/02/21 08:54 KS (Rec: 10/02/21 09:31 KS [id number]) PT Summary Assessment and Plan Potential Rehabilitation Potential Good Status of Condition at Evaluation Evolving Summary Impairments Pain,ROM,Strength,Balance,Gait Progress Towards Goals Progressing Toward Goals Assessment Summary Pt able to safely get out of bed and ambulate independently . Instructed pts how to apply gait belt and manage IV pole for pt while she is ambulating. Informed pt to notify nursing when she wants to ambulate in room or hallway . She feels she currently has no further needs for acute PT and feels safe to return home. She will benefit from OPPT to improve strength and gait. Goals Gait Goal Independent,Cane Gait Distance 250 Other Goals - up/down 2 steps with unilateral rails and/or SPC IND Days to Meet Goals 2 Frequency of Treatment Frequency Of Treatment Once a Day Treatment Plan Physical Therapy Treatment Plan Gait Training,Therapeutic Exercise,Balance Retraining, Discharge Planning,Hot or Cold Pack Weight Bearing Status Weight Bearing Status Full Weight Bearing Allowed Weight Bearing Amount (enter % RLE full weightbearing per or #) (%) ortho order Recommendations To Nursing Amount of Assist Needed Standby Assistance Discharge Recommendations PT Discharge Recommendations Home with Assistance, Outpatient PT Transportation Needs at Discharge Private Vehicle
--- NOTE | 2021-10-02 11:03 | PM.PN.1 ---
Subjective Subjective Date Patient Seen: 10/02/21 Time Patient Seen: 08:50 Interval history: CC: R leg wound pt feels ok, able to hobble around and bear weight, appetite ok, leg still erythematous with some wound seepage Ortho took a look today and desire another 24 hours of iv abx so resuming vanc and rocephin for now Exam Vital Signs (past 8 hours): - 10/02/21 05:50 10/02/21 07:41 10/02/21 08:19 Temperature 98.6 F 98.2 F Pulse Rate 68 65 Respiratory Rate 16 18 Blood Pressure 133/67 122/71 Pulse Oximetry 98 96 100 Oxygen Delivery Method Room Air Oxygen Flow Rate 0 0 0 Oxygen Delivery Method Room Air Oxygen Flow Rate 0 Narrative Exam Narrative: laying in bed with at bedside chatting Const General: cooperative and comfortable HENMT Head: normocephalic and atraumatic Eyes General: appearance normal, both eyes and all related structures Resp Auscultation: clear to auscultation bilaterally Cardio Rate: regular rate Heart Sounds: S1 normal and S2 normal GI Other: soft nontender nondistended Neuro General: patient alert, patient awake, patient oriented x3 and moves all extremities Extrem Other: RLE with continued streaking erythematous cellulitis less raised with clear borders, medial ankle wound with some light seepage, DP pulse strong Psych Appearance: grossly normal and well kempt Objective Labs Result Diagrams: 10/02/21 05:38 10/02/21 05:38 Labs: Laboratory Results - last 24 hr 10/01/21 10/01/21 10/02/21 12:40 15:23 05:38 WBC 5.5 RBC 4.05 Hgb 11.7 L Hct 33.8 L MCV 83.6 MCH 28.9 MCHC 34.6 RDW 13.8 Plt Count 346 Neut % (Auto) 68.6 Lymph % (Auto) 20.7 L [place] % (Auto) 7.8 Eos % (Auto) 2.1 Baso % (Auto) 0.8 Neut # (Auto) 3800 Lymph # (Auto) 1100 [place] # (Auto) 400 Eos # (Auto) 100 Baso # (Auto) 0 Sodium Potassium Chloride Carbon Dioxide BUN Creatinine Estimated GFR BUN/Creatinine Ratio Glucose Calcium Vancomycin Peak 8.6 L Vancomycin Trough 10.1 10/02/21 05:38 WBC RBC Hgb Hct MCV MCH MCHC RDW Plt Count Neut % (Auto) Lymph % (Auto) [place] % (Auto) Eos % (Auto) Baso % (Auto) Neut # (Auto) Lymph # (Auto) [place] # (Auto) Eos # (Auto) Baso # (Auto) Sodium 128 L Potassium 4.1 Chloride 98 Carbon Dioxide 25 BUN 13 Creatinine 0.49 L Estimated GFR > 60 BUN/Creatinine Ratio 26.5 H Glucose 90 Calcium 7.8 L Vancomycin Peak Vancomycin Trough PFSH Medical History Hypertension Osteoarthritis Surgical History H/O hysterectomy with oophorectomy Family History Father Stroke Social History household members: spouse Smoking Status: Never smoker alcohol intake: current substance use type: does not use Assessment & Plan Assessment & Plan narrative: #cellulitis with abscess, R medial ankle s/p washout by Ortho, appreciate input, continuing 1 more day of iv abx ro and vanc then maybe home on oral abx #hyponatremia improving, advised good nutrition, follow #osteoporosis stable continue to hold home bisphosphonate Dispo: possible home tomorow, ambulating well, encouraged mobilization DVT ppx: lovenox and scds diet: regular code: DNR MDM: Brian [phone] PCP: Maria Alejandra Beltran Time Spent With Patient Critical Care time: I spent a total of [] minutes of critical care time on this patient's care today; this time is exclusive of procedural time.
[2021-10-02] MEDS: cefTRIAXone 2,000 MG in SODIUM CHLORIDE 0.9% 100 ML 200 MG IV (11:25)
[2021-10-02] MEDS: SODIUM CHLORIDE 0.9% 1,000 ML 100 ML IV ×2 (11:27→19:54)
--- NOTE | 2021-10-02 11:54 | CM.DPNOTE ---
Faxed referral to [facility] per Lorene. Italia Flores CM Assist.
[2021-10-02] MEDS: VANCOMYCIN 1,250 MG/250 ML PIGGYBACK 250 MG IV ×2 (12:29→23:34)
--- NOTE | 2021-10-02 13:11 | CM.DPC ---
DCP Cont: Per Ortho MD, recommending at least one more day of IV-Abx and pt has been on oral abx last couple days and RN restarted IV-Abx this morning. Per MD, pt likely stable for d/c after IV-Abx and requesting assist with getting outpt wound care set up. AGUSTINA called [facility] and spoke to Elenita who requests call from [facility] Wound RN to determine pt's wound care needs and frequency. [facility] coordinated with [facility] and earliest availability is next week 10/10/21 at 1315 and therefore pt will need HH RN for wound care while awaiting outpt clinic. SW called [facility] based on vendor calendar and they do not have availability for [place] until 10/12/21. SW called [facility] and they have availability on Thu10/04/21 for RN start of care and will accept pt's referral. LANDON Echavarria faxed initial referral and AGUSTINA faxed completed F2F and HH orders and Wound RN note/pic to review. Per PT, pt back to baseline and recommending safe d/c home with supportive spouse and outpt f/u. SW met bedside with pt and explained role and provided information regarding [facility] and pwk and date of [facility] and expressed only available appointment at [facility] and strongly encouraged pt not to miss it. Pt very appreciative and agreeable with [facility]ending sale to [facility] and [facility] outpt f/u. Spouse will be bedside later today again and will provide transport at d/c and assist whenever needed. Pt confirms her PCP used to be Dr. Sifuentes but now that Dr. Sifuentes moved her new PCP is Dr. Rankin at [facility]. Plan: SW to follow for likely d/c to home tomorrow on oral abx if medically stable and fax d/c summary to [facility]ending sale to [facility] at discharge. Lorene Aguilera MSW
--- NOTE | 2021-10-02 13:19 | PT.IPTN ---
Current Diagnoses Hypo-osmolality and hyponatremia (09/29/21) Cutaneous abscess of right lower limb (09/29/21) Cutaneous abscess of limb, unspecified (09/29/21) Cellulitis of right lower limb (09/29/21) Personal history of other venous thrombosis and embolism (09/29/21) Surgery Performed Operation Date: 09/29/21 13:30 Actual Procedures p Incision and Drainage Wound/Extremity(Right) - Viji Carreon MD Physical Therapy Treatment Note M2 PT-IP Current Condition Start: 09/30/21 08:47 Freq: NEEDED Status: Active Protocol: Document 09/30/21 09:46 AW (Rec: 09/30/21 12:27 AW [id number]) Physical Therapy Current Condition Current Condition Evaluation Date 09/30/21 Treatment Diagnosis RLE cellulitis s/p I&D, difficulty in walking Onset Date 09/23/21 M3 PT-IP Subjective Start: 09/30/21 08:47 Freq: NEEDED Status: Active Protocol: Document 10/02/21 13:16 AB (Rec: 10/02/21 13:19 AB [id number]) Subjective Physical Therapy Visit Type Type Administrative Note Notes 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 Pt's spouse will assist pt at home. Pt requesting d/c from PT as well and agreed to ambulate as much as possible while here in the hospital and inform the nurse. BUILDER [employer] informed case management specialist regarding d/c from PT. M7 PT-IP Assessment and Plan Start: 09/30/21 08:47 Freq: NEEDED Status: Active Protocol: Document 10/02/21 13:16 AB (Rec: 10/02/21 13:19 AB [id number]) PT Summary Assessment and Plan Frequency of Treatment Frequency Of Treatment Discharge
--- NOTE | 2021-10-02 20:59 | PC.NURSE ---
Patient is alert and oriented. Breath sounds CTA with RA sat of 98%. HRR but BP elevated at 141/76; consistent with earlier readings. Denies nausea. BT present and had BM earlier today so is refusing scheduled bowel meds. Denies dysuria but having urinary frequency which she attributes is due to IVF infusing. Is able to turn herself in bed and gets up with cane and SBA; mild weakness in right LE. Dressing to right foot/ankle is CDI. Right lower leg continues to be red/warm/swollen but doesn't appear any different from last night. Denies pain, tingling or numbness. Left calf SCD applied. Fall risk score is high and bed alarm is activated.
[2021-10-03 03:56] VITALS: BP 150/71; PULSE 90; RESP 17; TEMP 36.4; O2SAT 100
[2021-10-03] MEDS: IBUPROFEN 600 MG TABLET PO (05:59)
[2021-10-03] MEDS: SODIUM CHLORIDE 0.9% 1,000 ML 100 ML IV (06:43)
[2021-10-03 07:00] VITALS: BP 127/68; PULSE 67; RESP 19; TEMP 36.6; O2SAT 100
[2021-10-03 07:26] VITALS: O2SAT 96
--- NOTE | 2021-10-03 08:53 | P.PN_ITS ---
Subjective Subjective Date Patient Seen: 10/03/21 Time Patient Seen: 08:54 Interval history: Patient's pain is mild. Denies fever or chills. No nausea or vomiting. Patient has assistance at home. Exam Vital Signs (past 8 hours): - 10/03/21 03:56 10/03/21 07:26 10/03/21 07:00 Temperature 97.6 F 97.8 F Pulse Rate 90 67 Respiratory Rate 17 19 Blood Pressure 150/71 H 127/68 Pulse Oximetry 100 96 100 Oxygen Delivery Method Room Air Oxygen Flow Rate 0 0 0 Oxygen Delivery Method Room Air Oxygen Flow Rate 0 Narrative Exam Narrative: 76-year-old female resting comfortably in bed in no apparent distress. Scant serous drainage on the dressing. Mild erythema distal 3rd of the lower extremity overall improving. See photos from wound care nurse October 01, 2021. Const General: cooperative and comfortable Orientation: alert Resp Effort & Inspection: normal respiratory effort and able to speak in complete sentences Objective Labs Result Diagrams: 10/02/21 05:38 10/02/21 05:38 [facility] Medical History Hypertension Osteoarthritis Surgical History H/O hysterectomy with oophorectomy Family History Father Stroke Social History household members: spouse Smoking Status: Never smoker alcohol intake: current substance use type: does not use Assessment & Plan Post-op Postoperative Procedures: Procedures Operation Date: 09/29/21 13:30 Actual Procedure Side Surgeon p Incision and Drainage Wound/Extremity Right Viji Carreon MD Postoperative day: 4 Postoperative status narrative: Patient improving status post right leg irrigation and debridement on September 29, 2021 Postoperative plan narrative: Recommendation is to follow up at wound clinic and antimicrobial foam dressing for discharge. Schedule follow-up with wound clinic prior to discharge. Follow-up [facility] in 2 weeks Discharge home on oral antibiotics per Internal Medicine when medically stable.
[2021-10-03] MEDS: AMLODIPINE 5 MG TABLET PO (09:06)
[2021-10-03] MEDS: CHOLECALCIFEROL (VITAMIN D3) 1,000 UNIT TABLET 2000 UNIT PO (09:06)
[2021-10-03] MEDS: SODIUM CHLORIDE 0.9% FLUSH 10 ML IV (09:07)
[2021-10-03] MEDS: LACTOBACILLUS ACIDOPHILUS TABLET 1 EACH PO ×2 (09:07→12:41)
[2021-10-03] MEDS: ENOXAPARIN 40 MG/0.4 ML SYRINGE SUBCUT (09:07)
[2021-10-03] MEDS: cefTRIAXone 2,000 MG in SODIUM CHLORIDE 0.9% 100 ML 175 MG IV (10:03)
[2021-10-03 11:00] VITALS: BP 169/84; PULSE 68; RESP 18; TEMP 36.7; O2SAT 98
[2021-10-03] MEDS: VANCOMYCIN 1,250 MG/250 ML PIGGYBACK 250 MG IV (12:41)
--- NOTE | 2021-10-03 13:14 | PC.RNWOUND ---
Dressing changed to patient's right medial ankle wound, which appears unchanged since yesterday's dressing change. There was a moderate amount of serous drainage to removed dressing. Patient tolerates cares well and without complaint, denies numbness/tingling, wiggles toes, reports sensation to gentle touch. Periwound erythema also appears unchanged. Patient verbalizes understanding of increased protein in diet for wound healing, spouse at bedside.
--- NOTE | 2021-10-03 13:58 | P.DS_ITS ---
History of Present Illness History of Present Illness Date Patient Seen: 10/03/21 Time Patient Seen: 08:40 Date of Onset of Symptoms: 09/23/21 Chief complaint: leg ulcer getting worse PCP said come in Narrative: PT with longstanding hx of stasis dermatitis started having new small bruise- type wound on medial R ankle one week ago which progressed. Seen by PCP last week and started on cephalexin PO for some faint redness and a dry sore. On admission the wound and surrounding tissue was much beefier and extends to the knee with raised clear cellulitis morphology. The medial ankle wound was open and appears actively infected with exudate. Dr. Carreon was able to see pt in ED and took to ED for washout and I&D. Pt reports otherwise feeling generally ok not very hungry no issues with elimination able to bear weight on the leg it just has been hurting more and more. Discharge Providers Provider Date of admission: 09/29/21 12:35 Discharge Date: 10/04/21 Primary care physician: Tyler Carballo MD Consults: 09/29/21 13:51 Consult to Orthopedic Surgery Routine Comment: Consulting Provider: Viji Carreon Reason for consultation: abscess Has provider been notified: Yes 09/29/21 15:18 Consult to Discharge Planning Routine Comment: Consult to Physical Therapy Evaluate & Treat Comment: Physician Instructions: Evaluate and Treat Consult to Respiratory Therapy Evaluate & Treat Comment: Physician Instructions: Evaluate and treat 09/30/21 16:25 Consult to Inpatient Wound Care Nurse Routine Comment: Reason for consultation: Abscess R ankle; assessment/recommendations Has provider been notified: No 10/02/21 13:01 Consult to Home Health Routine Comment: Cellulitis, I&D achillies tendinosis, wound care Reason For Exam: Set up RN for d/c to home Discharge provider: Tyler Carballo MD Summary Hospital Course Discharge Diagnosis: #cellulitis with abscess, R medial ankle #hyponatremia #osteoporosis Hospital Course: Dr. Carreon performed I&D in OR and pt received multiple days of IV vanc and rocephin with improvement of spreading cellulitis. she felt well her appeite was good afebrile and able to ambulate and bear weight on the foot will d/c fredi on po abx to f/u outpt Status at Discharge Cognitive/behavioral status at discharge: at baseline, oriented Functional status at discharge: independent ambulation Overall status at discharge: patient is progressing back to baseline Exam Vital Signs (past 8 hours): - 10/03/21 07:26 10/03/21 07:00 10/03/21 11:00 Temperature 97.8 F 98.1 F Pulse Rate 67 68 Respiratory Rate 19 18 Blood Pressure 127/68 169/84 H Pulse Oximetry 96 100 98 Oxygen Delivery Method Room Air Oxygen Flow Rate 0 0 0 Oxygen Delivery Method Room Air Oxygen Flow Rate 0 Narrative Exam Narrative: sitting up in bed with at bedside Const General: cooperative, healthy appearing and comfortable [facility] Head: normocephalic and atraumatic Eyes General: appearance normal, both eyes and all related structures Resp Auscultation: clear to auscultation bilaterally Cardio Rate: regular rate Rhythm: regular rhythm Heart Sounds: S1 normal and S2 normal GI Auscultation: normal bowel sounds Extrem General: other (R ankle under gauze with no new serous drainage looks dry good DP pulse) Other: erythema on RLE continues to recede - there is some component of preexisting pigmentation Psych Appearance: grossly normal and well kempt Objective Labs Result Diagrams: 10/02/21 05:38 10/02/21 05:38 [facility] Medical History Hypertension Osteoarthritis Surgical History H/O hysterectomy with oophorectomy Family History Father Stroke Social History household members: spouse Smoking Status: Never smoker alcohol intake: current substance use type: does not use Discharge Assessment & Plan Assessment and Plan Assessment: #cellulitis with abscess, R medial ankle s/p washout by Ortho then IV vanco, doing better, will go home on oral abx bactrim DS, culture grew sensitive organism, and f/u as outpt able to bear weight and ambulate ok #hyponatremia improving, advised good nutrition, follow #osteoporosis stable ok to resume home bisphosphonate next week Dispo: possible home tomorrow, ambulating well, encouraged mobilization DVT ppx: lovenox and scds diet: regular code: DNR MDM: Brian [phone] PCP: Maria Alejandra Beltran Discharge Plan Discharge Plan Patient Disposition: Home Discharge orders & Medications Prescriptions: New sulfamethoxazole-trimethoprim [Bactrim DS] 800-160 mg tablet 2 tab PO BID 7 Days Qty: 28 0RF Continued prednisone 10 mg tablet 10 tab PO DAILY Rx Instructions: for 5 days. medication complete multivitamin Tablet 1 tab DAILY amlodipine [Norvasc] 2.5 mg Tablet 2.5 mg PO DAILY ibuprofen 300 mg Tablet 600 mg PO Q6H PRN (Reason: Pain (Scale Score 4-6)) alendronate 70 mg/75 mL Solution 70 mg PO QWEEK cholecalciferol (vitamin D3) [Vitamin D3] 50 mcg (2,000 unit) Capsule 50 mcg PO DAILY Follow up/Referrals: Tyler Carballo MD [Primary Care Provider] - Visit Report/Discharge Packet Instructions: DI for Incision and Drainage, [facility]: Wound Care Discharge Data Primary Care Provider: Tyler Carballo
--- NOTE | 2021-10-03 14:22 | CM.DPC ---
DCP Discharge Home with Per Ortho PA, pt medically stable to transition back to oral abx from 24 hrs IV-Abx and cleared for discharge. Per MD, pt remains stable for d/c home today with HH RN for wound care and outpt [facility] next week. AGUSTINA met bedside with pt and spouse and updated on [facility] opening tomorrow for HH RN and confirmed pt still has the pwk and appointment for [facility] appointment next week and spouse agreeable with transport to home today. Pt and spouse requesting call from [facility] today after they get home. SW called [facility] and confirmed they received the prior referral, F2F, and HH orders yesterday and faxed d/c summary today. AGUSTINA requested [facility] call to pt/spouse this afternoon once they discharge and Angel kindly agreeable to calling them later today and aware they will d/c in about half an hour. RN bedside and updated and providing pt and spouse with d/c instructions. Plan: Patient to d/c home today via spouse POV and [facility] RN to start tomorrow and [facility] next week on 10/10/21. MAURICE Leslie
== END 2021-10-03 14:50 | disposition home health service (06) | DRG 571 ==
LOC: ED 12:06 → AC 12:36
PROVIDERS: Family Medicine; Orthopaedic Surgery; Admitting Provider Family Medicine; Emergency Provider Emergency Medicine; PCP Family Medicine; Referring Provider Emergency Medicine; Visit Provider Family Medicine
PROC: 0JBN0ZZ Excision of Right Lower Leg Subcutaneous Tissue and Fascia, Open Approach (ICD-10-PCS; principal; 2021-09-29 13:30)
DX: L03.115 Cellulitis of right lower limb (principal); E87.1 Hypo-osmolality and hyponatremia; I96 Gangrene, not elsewhere classified; I10 Essential (primary) hypertension; M81.0 Age-related osteoporosis without current pathological fracture; Z20.822 Contact with and (suspected) exposure to COVID-19; Z66 Do not resuscitate
CPT/HCPCS: 36415; 80048; 80053; 80202; 83605; 83690; 84145; 85025; 85027; 85651; 86140; 87040; 87070; 87075; 87077; 87147; 87205; 87635; 93971; 96365; 97116; 97162; 99284; C9803; J0696; J1650; J2405; J2704; J2765; J3010

== ENCOUNTER → 2021-10-10 12:09 | Outpatient (CLI) | payer OTHER, SELFPAY ==
[2021-09-29 15:34] VITALS: BMI 23.2
== END ==
PROVIDERS: Family Provider Family Medicine; PCP Family Medicine; Referring Provider Orthopaedic Surgery; Visit Provider Family Medicine
DX: T81.89XA Other complications of procedures, not elsewhere classified, initial encounter (principal); S91.001A Unspecified open wound, right ankle, initial encounter; I87.2 Venous insufficiency (chronic) (peripheral); R60.0 Localized edema
CPT/HCPCS: 11042; 93922; 99204; 99213

== ENCOUNTER → 2021-10-17 12:12 | Outpatient (CLI) | payer OTHER, SELFPAY ==
[2021-09-29 15:34] VITALS: BMI 23.2
== END ==
PROVIDERS: Family Provider Family Medicine; PCP Family Medicine; Referring Provider Family Medicine; Visit Provider Family Medicine
DX: T81.89XA Other complications of procedures, not elsewhere classified, initial encounter (principal); S91.001A Unspecified open wound, right ankle, initial encounter; R60.0 Localized edema
CPT/HCPCS: 97605

== ENCOUNTER → 2021-10-24 09:10 | Outpatient (CLI) | payer OTHER, SELFPAY ==
[2021-09-29 15:34] VITALS: BMI 23.2
== END ==
PROVIDERS: Family Provider Family Medicine; PCP Family Medicine; Referring Provider Family Medicine; Visit Provider Family Medicine
DX: S91.001A Unspecified open wound, right ankle, initial encounter (principal); I87.2 Venous insufficiency (chronic) (peripheral); R60.0 Localized edema
CPT/HCPCS: 11042; 97605

== ENCOUNTER → 2021-10-31 11:41 | Outpatient (CLI) | payer OTHER, SELFPAY ==
[2021-09-29 15:34] VITALS: BMI 23.2
== END ==
PROVIDERS: Family Provider Family Medicine; PCP Family Medicine; Referring Provider Family Medicine; Visit Provider Family Medicine
DX: T81.89XA Other complications of procedures, not elsewhere classified, initial encounter (principal); S91.001A Unspecified open wound, right ankle, initial encounter; L08.9 Local infection of the skin and subcutaneous tissue, unspecified; R60.0 Localized edema; I87.2 Venous insufficiency (chronic) (peripheral)
CPT/HCPCS: 11042; 87070; 87075; 87077; 87147; 87186; 87205; 99214

== ENCOUNTER → 2021-11-07 10:26 | Outpatient (CLI) | payer OTHER, SELFPAY ==
[2021-09-29 15:34] VITALS: BMI 23.2
== END ==
PROVIDERS: Family Provider Family Medicine; PCP Family Medicine; Referring Provider Family Medicine; Visit Provider Family Medicine
DX: S91.001A Unspecified open wound, right ankle, initial encounter (principal); I87.2 Venous insufficiency (chronic) (peripheral); R60.0 Localized edema; L08.89 Other specified local infections of the skin and subcutaneous tissue; B95.62 Methicillin resistant Staphylococcus aureus infection as the cause of diseases classified elsewhere
CPT/HCPCS: 11042; 87070; 87075; 87205; 99213; 99214

== ENCOUNTER → 2021-11-14 13:14 | Outpatient (CLI) | payer OTHER, SELFPAY ==
[2021-09-29 15:34] VITALS: BMI 23.2
== END ==
PROVIDERS: Family Provider Family Medicine; PCP Family Medicine; Referring Provider Family Medicine; Visit Provider Family Medicine
DX: I87.2 Venous insufficiency (chronic) (peripheral) (principal); L97.312 Non-pressure chronic ulcer of right ankle with fat layer exposed; R60.0 Localized edema
CPT/HCPCS: 11042; 97605

== ENCOUNTER → 2021-11-28 13:37 | Outpatient (CLI) | payer OTHER, SELFPAY ==
[2021-09-29 15:34] VITALS: BMI 23.2
== END ==
PROVIDERS: Family Provider Family Medicine; PCP Family Medicine; Referring Provider Family Medicine; Visit Provider Family Medicine
DX: I87.2 Venous insufficiency (chronic) (peripheral) (principal); L97.312 Non-pressure chronic ulcer of right ankle with fat layer exposed; R60.0 Localized edema; L53.9 Erythematous condition, unspecified; L08.89 Other specified local infections of the skin and subcutaneous tissue; Z86.718 Personal history of other venous thrombosis and embolism
CPT/HCPCS: 11042; 87070; 87075; 87077; 87147; 87186; 87205; 99214

== ENCOUNTER → 2021-12-05 15:04 | Outpatient (CLI) | payer OTHER, SELFPAY ==
[2021-09-29 15:34] VITALS: BMI 23.2
== END ==
PROVIDERS: Family Provider Family Medicine; PCP Family Medicine; Referring Provider Family Medicine; Visit Provider Family Medicine
DX: I87.2 Venous insufficiency (chronic) (peripheral) (principal); L97.312 Non-pressure chronic ulcer of right ankle with fat layer exposed; R60.0 Localized edema; L08.89 Other specified local infections of the skin and subcutaneous tissue; B95.62 Methicillin resistant Staphylococcus aureus infection as the cause of diseases classified elsewhere; Z86.718 Personal history of other venous thrombosis and embolism
CPT/HCPCS: 11042; 99212; 99214

== ENCOUNTER → 2021-12-12 13:02 | Outpatient (CLI) | payer OTHER, SELFPAY ==
[2021-09-29 15:34] VITALS: BMI 23.2
== END ==
PROVIDERS: Family Provider Family Medicine; PCP Family Medicine; Referring Provider Family Medicine; Visit Provider Family Medicine
DX: I87.2 Venous insufficiency (chronic) (peripheral) (principal); L97.312 Non-pressure chronic ulcer of right ankle with fat layer exposed; R60.0 Localized edema
CPT/HCPCS: 11042; 11045; 97605

== ENCOUNTER → 2021-12-19 15:10 | Outpatient (CLI) | payer OTHER, SELFPAY ==
[2021-09-29 15:34] VITALS: BMI 23.2
== END ==
PROVIDERS: Family Provider Family Medicine; PCP Family Medicine; Referring Provider Family Medicine; Visit Provider Family Medicine
DX: I87.2 Venous insufficiency (chronic) (peripheral) (principal); L97.312 Non-pressure chronic ulcer of right ankle with fat layer exposed; R60.0 Localized edema; L23.1 Allergic contact dermatitis due to adhesives
CPT/HCPCS: 11042; 99213

== ENCOUNTER → 2021-12-25 13:45 | Outpatient (CLI) | payer OTHER, SELFPAY ==
[2021-09-29 15:34] VITALS: BMI 23.2
[2022-01-09 12:09] LABS: Misc. to WA State Lab SEE SEPARATE REPORTS
== END ==
PROVIDERS: Family Provider Family Medicine; PCP Family Medicine; Referring Provider Family Medicine; Visit Provider Family Medicine
DX: I87.2 Venous insufficiency (chronic) (peripheral) (principal); L97.312 Non-pressure chronic ulcer of right ankle with fat layer exposed; R60.0 Localized edema; L23.1 Allergic contact dermatitis due to adhesives
CPT/HCPCS: 11042; 87070; 87075; 87077; 87186; 87205; 99213

== ENCOUNTER → 2022-01-01 13:52 | Outpatient (CLI) | payer OTHER, SELFPAY ==
[2021-09-29 15:34] VITALS: BMI 23.2
== END ==
PROVIDERS: Family Provider Family Medicine; PCP Family Medicine; Referring Provider Family Medicine; Visit Provider Family Medicine
DX: I87.2 Venous insufficiency (chronic) (peripheral) (principal); L97.312 Non-pressure chronic ulcer of right ankle with fat layer exposed; R60.0 Localized edema; L08.89 Other specified local infections of the skin and subcutaneous tissue; L03.115 Cellulitis of right lower limb
CPT/HCPCS: 11042; 99214

== ENCOUNTER → 2022-01-08 14:16 | Outpatient (CLI) | payer OTHER, SELFPAY ==
[2021-09-29 15:34] VITALS: BMI 23.2
== END ==
PROVIDERS: Family Provider Family Medicine; PCP Family Medicine; Referring Provider Family Medicine; Visit Provider Family Medicine
DX: I87.2 Venous insufficiency (chronic) (peripheral) (principal); L97.312 Non-pressure chronic ulcer of right ankle with fat layer exposed; R60.0 Localized edema; L08.9 Local infection of the skin and subcutaneous tissue, unspecified; L03.115 Cellulitis of right lower limb; Z86.718 Personal history of other venous thrombosis and embolism
CPT/HCPCS: 11042; 11045; 99212

== ENCOUNTER → 2022-01-15 12:53 | Outpatient (CLI) | payer OTHER, SELFPAY ==
[2021-09-29 15:34] VITALS: BMI 23.2
== END ==
PROVIDERS: Family Provider Family Medicine; PCP Family Medicine; Referring Provider Family Medicine; Visit Provider Family Medicine
DX: I87.2 Venous insufficiency (chronic) (peripheral) (principal); L97.312 Non-pressure chronic ulcer of right ankle with fat layer exposed; R60.0 Localized edema; S81.801A Unspecified open wound, right lower leg, initial encounter; Z12.31 Encounter for screening mammogram for malignant neoplasm of breast
CPT/HCPCS: 11042; 11045; 77063; 77067; 99213

== ENCOUNTER → 2022-01-15 13:41 | Outpatient (CLI) | payer OTHER, SELFPAY ==
[2021-09-29 15:34] VITALS: BMI 23.2
--- NOTE | 2022-01-15 13:42 | DI.MG.S_ITS ---
BILATERAL DIGITAL SCREENING MAMMOGRAM 3D/2D WITH CAD: 01/15/2022 CLINICAL: Routine screening. Comparison is made to exams dated: 01/16/2020 mammogram - [facility], 06/23/2018 mammogram, and 03/02/2017 mammogram - outside location. Both breasts are extremely dense, which lowers the sensitivity of mammography (category d />75% glandular tissue). Current study was also evaluated with a Computer Aided Detection (CAD) system. No significant masses, calcifications, or other findings are seen in either breast. There has been no significant interval change. IMPRESSION: NEGATIVE There is no mammographic evidence of malignancy. A 1 year screening mammogram is recommended. Based on the Tyrer Cuzick model (a risk assessment model) the patient's lifetime risk is 6.4% and her 10 year risk is 6.4%. According to the ACR, ACS, and NCCN guidelines, an annual breast MRI exam along with mammogram is recommended if the patient's lifetime risk is 20% or greater. This exam was interpreted at Station ID: [id number]. NOTE: For mammograms, a report in lay terms will be sent to the patient. Approximately 15% of breast malignancies will not be visualized mammographically. In the management of a palpable breast mass, a negative mammogram must not discourage biopsy of a clinically suspicious lesion. Electronically Signed By: Analia reddy/gina:01/15/2022 16:57:17 letter sent: Normal Exam ACR BI-RADS Category 1: Negative [id number]
== END ==
PROVIDERS: Family Provider Family Medicine; PCP Family Medicine; Referring Provider Family Medicine; Visit Provider Family Medicine
DX: Z12.31 Encounter for screening mammogram for malignant neoplasm of breast (principal)
CPT/HCPCS: 77063; 77067

== ENCOUNTER → 2022-01-22 15:12 | Outpatient (CLI) | payer OTHER, SELFPAY ==
[2021-09-29 15:34] VITALS: BMI 23.2
== END ==
PROVIDERS: Family Provider Family Medicine; PCP Family Medicine; Referring Provider Family Medicine; Visit Provider Family Medicine
DX: I87.021 Postthrombotic syndrome with inflammation of right lower extremity (principal); R60.0 Localized edema
CPT/HCPCS: 11042

== ENCOUNTER → 2022-01-29 15:05 | Outpatient (CLI) | payer OTHER, SELFPAY ==
[2021-09-29 15:34] VITALS: BMI 23.2
== END ==
PROVIDERS: Family Provider Family Medicine; PCP Family Medicine; Referring Provider Family Medicine; Visit Provider Family Medicine
DX: I87.021 Postthrombotic syndrome with inflammation of right lower extremity (principal); L97.312 Non-pressure chronic ulcer of right ankle with fat layer exposed; R60.0 Localized edema
CPT/HCPCS: 11042; 29581; 99212

== ENCOUNTER → 2022-02-05 14:44 | Outpatient (CLI) | payer OTHER, SELFPAY ==
[2021-09-29 15:34] VITALS: BMI 23.2
== END ==
PROVIDERS: Family Provider Family Medicine; PCP Family Medicine; Referring Provider Family Medicine; Visit Provider Family Medicine
DX: I87.2 Venous insufficiency (chronic) (peripheral) (principal); L97.312 Non-pressure chronic ulcer of right ankle with fat layer exposed; L08.9 Local infection of the skin and subcutaneous tissue, unspecified; R59.9 Enlarged lymph nodes, unspecified
CPT/HCPCS: 11042; 99214

== ENCOUNTER → 2022-02-19 15:26 | Outpatient (CLI) | payer OTHER, SELFPAY ==
[2021-09-29 15:34] VITALS: BMI 23.2
== END ==
PROVIDERS: Family Provider Family Medicine; PCP Family Medicine; Referring Provider Family Medicine; Visit Provider Family Medicine
DX: I87.2 Venous insufficiency (chronic) (peripheral) (principal); L97.312 Non-pressure chronic ulcer of right ankle with fat layer exposed; L53.9 Erythematous condition, unspecified; R60.0 Localized edema; Z86.718 Personal history of other venous thrombosis and embolism
CPT/HCPCS: 11042; 11045; 99213

== ENCOUNTER → 2022-03-05 14:26 | Outpatient (CLI) | payer OTHER, SELFPAY ==
[2021-09-29 15:34] VITALS: BMI 23.2
== END ==
PROVIDERS: Family Provider Family Medicine; PCP Family Medicine; Referring Provider Family Medicine; Visit Provider Surgery
DX: I87.2 Venous insufficiency (chronic) (peripheral) (principal); L97.312 Non-pressure chronic ulcer of right ankle with fat layer exposed
CPT/HCPCS: 11042; 11045

== ENCOUNTER → 2022-03-07 15:22 | Outpatient (CLI) | payer OTHER, SELFPAY ==
[2021-09-29 15:34] VITALS: BMI 23.2
== END ==
PROVIDERS: Family Provider Family Medicine; PCP Family Medicine; Referring Provider Orthopaedic Surgery; Visit Provider Surgery
DX: I87.2 Venous insufficiency (chronic) (peripheral) (principal); L97.312 Non-pressure chronic ulcer of right ankle with fat layer exposed; R60.0 Localized edema; L53.9 Erythematous condition, unspecified
CPT/HCPCS: 29581; 99212

== ENCOUNTER → 2022-03-10 10:10 | Outpatient (CLI) | payer OTHER, SELFPAY ==
[2021-09-29 15:34] VITALS: BMI 23.2
[2022-03-10 11:41] LABS: COVID19 -Nasal RAPID Negative (Negative)
== END ==
PROVIDERS: Family Provider Family Medicine; PCP Family Medicine; Visit Provider Surgery
DX: Z01.812 Encounter for preprocedural laboratory examination (principal); Z20.822 Contact with and (suspected) exposure to COVID-19
CPT/HCPCS: 87635; C9803

== ENCOUNTER 2022-03-11 10:58 | Day surgery (SDC) | payer OTHER, SELFPAY ==
[2021-09-29 15:34] VITALS: BMI 23.2
[2022-03-11 11:23] VITALS: BP 130/77; PULSE 96; RESP 16; TEMP 36.8; O2SAT 100; BMI 21.4
[2022-03-11] MEDS: LACTATED RINGERS 1,000 ML 42 ML IV (11:40)
--- NOTE | 2022-03-11 12:04 | P.HP_ITS ---
History of Present Illness History of Present Illness Date Patient Seen: 03/11/22 Time Patient Seen: 12:04 Chief complaint: SCREENING COLONOSCOPY Narrative: The patient presents for colorectal screening. Colonoscopy over 10 years ago normal. No personal or family history of colon cancer. On further history denies any recent gastrointestinal symptoms. No nausea, vomiting, abdominal pain, loss of appetite, unexplained weight loss, change in bowel habits, diarr hea, constipation, melena, hematochezia, or bright red blood per rectum. Patient History Medical History Hypertension Osteoarthritis Surgical History H/O hysterectomy with oophorectomy Family & Social History Family History Father Stroke Social History: household members spouse Tobacco & Substance use: Smoking Status Never smoker alcohol intake current alcohol intake frequency 0-2 drinks per day Substance Use Type does not use Meds Home Medications and Allergies Home Medications Medication Instructions Recorded Confirmed Type cholecalciferol (vitamin D3) 50 50 mcg PO DAILY 10/18/20 03/11/22 History mcg (2,000 unit) capsule (Vitamin D3) ibuprofen 300 mg tablet 600 mg PO Q6H PRN Pain (Scale 10/18/20 03/11/22 History Score 4-6) multivitamin 1 tab DAILY 10/18/20 03/11/22 History amlodipine 5 mg tablet 5 mg PO DAILY 01/15/22 03/11/22 History loratadine 10 mg tablet (Allergy 10 mg PO DAILY 01/15/22 03/11/22 History Relief (loratadine)) alendronate 70 mg tablet See Rx Instructions .Route .COMPLEX 03/11/22 03/11/22 History Allergies Allergy/AdvReac Type Severity Reaction Status Date / Time latex AdvReac Rash Verified 03/11/22 10:22 Exam Vital Signs (past 8 hours): - 03/11/22 11:23 Temperature 98.2 F Pulse Rate 96 H Respiratory Rate 16 Blood Pressure 130/77 Pulse Oximetry 100 Oxygen Delivery Method Room Air Oxygen Delivery Method Room Air Narrative Exam Narrative: General adult woman alert oriented no acute distress Abdomen soft nontender nondistended Assessment & Plan Assessment & Plan narrative: The patient requires colorectal screening and colonoscopy is recommended. Technical details were discussed. Risks, benefits, alternatives explained. Risks including but not limited to myocardial infarction, aspiration, bleeding, pain, missed lesion, incomplete examination, need for further radiographic studies, colonic perforation, and need for major abdominal surgery were discussed. All questions were answered to their satisfaction, and they are in agreement with this plan. Time Spent With Patient Critical Care time: I spent a total of [] minutes of critical care time on this patient's care today; this time is exclusive of procedural time.
--- NOTE | 2022-03-11 12:41 | PM.OP.COLON ---
Operative Date/Time/Diagnoses Date of procedure: 03/11/22 Time of procedure: 12:41 Pre-op diagnosis: Screening colonoscopy Post-op diagnosis: same Procedure & Clinicians Study performed: Colonoscopy Same procedure as scheduled: Yes Indications: Colorectal screening Surgeon: Anibal Lozano Procedure Notes Procedure in detail: The history and physical was performed/updated and the patient is ASA class is 2. The procedure was discussed in detail with the patient. Potential risks complications including infection, bleeding, missed diagnosis, perforation, need for surgery, and were explained. Their questions were answered and informed consent was obtained. Patient was brought to the procedure room and placed standard monitoring equipment. The patient's vital signs were monitored continuously throughout the entire procedure. Prior to starting time-out was performed. The patient was placed in the left lateral recumbent position. Procedural sedation was administered by anesthesia. Examination began with a thorough inspection of the perianal area there was no evidence of fissures, fistulae, external hemorrhoids or cutaneous malignancy. The colonoscopy scope was then placed into the anal canal and was advanced to the cecum, which was identified by the ileocecal valve, the appendiceal orifice and the confluence of the taenia. The scope was then slowly withdrawn examining colon thoroughly in all directions, irrigating it of any residual stool. FINDINGS 1. No masses or polyps 2. Tortuous colon The patient tolerated the procedure well. They will be discharged once criteria are met. The prep was of good/excellent quality. The withdrawl time was 11 minutes. Specimen(s): none sent Impression: Normal colonoscopy Post-procedure Recommendations: High fiber diet Plan for aftercare: No further colonoscopy is likely necessary
[2022-03-11 12:45] VITALS: BP 113/67; PULSE 87; RESP 23; TEMP 36.6; O2SAT 94
[2022-03-11 12:48] VITALS: BP 116/69; PULSE 89; RESP 18; O2SAT 95
[2022-03-11 12:53] VITALS: BP 121/67; PULSE 85; RESP 19; TEMP 36; O2SAT 98
[2022-03-11 13:01] VITALS: BP 120/76; PULSE 85; RESP 17; TEMP 36.4; O2SAT 97
== END 2022-03-11 13:17 | disposition home or self-care (01) ==
PROVIDERS: Family Provider Family Medicine; PCP Family Medicine; Referring Provider Surgery; Visit Provider Surgery
PROC: 0DJD8ZZ Inspection of Lower Intestinal Tract, Via Natural or Artificial Opening Endoscopic (ICD-10-PCS; CPT 45378; principal; 2022-03-11 11:45)
DX: Z12.11 Encounter for screening for malignant neoplasm of colon (principal)
CPT/HCPCS: 45378; J2704

== ENCOUNTER → 2022-03-20 13:09 | Outpatient (CLI) | payer OTHER, SELFPAY ==
[2021-09-29 15:34] VITALS: BMI 23.2
== END ==
PROVIDERS: Family Provider Family Medicine; PCP Family Medicine; Referring Provider Family Medicine; Visit Provider Surgery
DX: I87.2 Venous insufficiency (chronic) (peripheral) (principal); L97.312 Non-pressure chronic ulcer of right ankle with fat layer exposed; R60.0 Localized edema
CPT/HCPCS: 11042; 11045; 87070; 87205; 99213

== ENCOUNTER → 2022-03-24 10:45 | Outpatient (CLI) | payer OTHER, SELFPAY ==
[2021-09-29 15:34] VITALS: BMI 23.2
--- NOTE | 2022-03-24 10:46 | DI.MRI.S_ITS ---
PROCEDURE: MR ANKLE RT WO/W CON INDICATIONS: open wound on ankle- eval for osteo TECHNIQUE: Noncontrast sagittal T1 spin echo and T2 fast spin echo with fat saturation, axial proton density fast spin echo and T2 fast spin echo with fat saturation, axial T1 spin echo with fat saturation, coronal T1 spin echo and T2 fast spin echo with fat saturation through the ankle/hindfoot. Post-contrast axial, coronal, and sagittal T1 spin echo with fat saturation through the ankle/hindfoot. COMPARISON: None. FINDINGS: Image quality: Excellent. Bones and joints: No bone marrow contusions or fractures. No hindfoot coalitions. No osteochondral injuries of the talar dome. No pathologic joint effusions. Ulceration are long posterior lateral aspect of distal lower leg extending to the level of tibiotalar joint is seen. There is soft tissue swelling and edema surrounding distal lower leg extending to midfoot and hindfoot with heterogeneous contrast enhancement within the soft tissues suggestive of cellulitis. No discrete drainable abscess collection is identified. Medial structures: The posterior tibialis, flexor digitorum longus, and flexor hallucis longus tendons are intact. The posterior tibial neurovascular bundle appears normal within the tarsal tunnel, without extrinsic mass effect. The deltoid ligament and spring ligament are grossly intact. There is mild edema involving distal flexor muscles in lower leg extending to ankle level concerning for low-grade myositis. No intramuscular fluid collection or enhancing mass is seen. Lateral structures: The anterior talofibular, calcaneofibular, and posterior talofibular ligaments appear intact. More superiorly, the anterior and posterior tibiofibular ligaments appear intact, as is the intermalleolar ligament. The tibiofibular syndesmosis is normal in width at 2 mm or less. The peroneus longus and brevis tendons demonstrate normal location and morphology. Adjacent bony peroneal tubercle and retrotrochlear prominence are normal in size. The sinus tarsi demonstrates normal fatty signal, without edema, fibrosis, or cyst formation. Visualized sinus tarsi components (cervical ligament, interosseous talocalcaneal ligament, roots of the inferior extensor retinaculum) appear normal. The calcaneonavicular and calcaneocuboid components of the bifurcate ligament appear intact. The dorsal calcaneocuboid ligament appears intact. Anterior structures: The tibialis anterior, extensor hallucis longus, and extensor digitorum longus tendons appear intact. The dorsal talonavicular ligament appears intact. Posterior and plantar structures: Achilles tendon is intact. Medial and lateral bands of the plantar fascia are of normal thickness. No abductor digiti quinti muscle atrophy to suggest Kaminski neuropathy. IMPRESSION: 1. Ulceration involving posterior lateral lower leg extending to hindfoot level with adjacent cellulitis. No discrete drainable abscess collection is seen. 2. Suggestion of mild myositis involving distal flexor muscles. No intramuscular fluid collection or enhancing mass. 3. No evidence of osteomyelitis. No fracture or dislocation. No suspicious intraosseous lesions. 4. Ankle tendons and ligaments are grossly intact. Dictated by: Pee Cintron M.D. on 03/25/2022 at 11:53 Approved by: Pee Cintron M.D. on 03/25/2022 at 11:58
== END ==
PROVIDERS: Family Provider Family Medicine; PCP Family Medicine; Referring Provider Family Medicine; Visit Provider Family Medicine
DX: L97.312 Non-pressure chronic ulcer of right ankle with fat layer exposed (principal); L03.115 Cellulitis of right lower limb
CPT/HCPCS: 73723; A9579

== ENCOUNTER → 2022-04-03 13:28 | Outpatient (CLI) | payer OTHER, SELFPAY ==
[2021-09-29 15:34] VITALS: BMI 23.2
== END ==
PROVIDERS: Family Provider Family Medicine; PCP Family Medicine; Referring Provider Orthopaedic Surgery; Visit Provider Surgery
DX: I87.2 Venous insufficiency (chronic) (peripheral) (principal); L97.312 Non-pressure chronic ulcer of right ankle with fat layer exposed; L03.115 Cellulitis of right lower limb; L08.9 Local infection of the skin and subcutaneous tissue, unspecified; R60.0 Localized edema
CPT/HCPCS: 11042; 11045; 87070; 87075; 87077; 87147; 87186; 87205; 99213

== ENCOUNTER → 2022-04-07 13:18 | Outpatient (CLI) | payer OTHER, SELFPAY ==
[2021-09-29 15:34] VITALS: BMI 23.2
[2022-04-07 13:45] LABS: Add Manual Diff / Slide Review NO; Basophils Absolute Auto 100 /uL (0-100); Basophils Percent Auto 1.3 % (0-2); Eosinophils Absolute Auto 600 /uL (0-450); Eosinophils Percent Auto 7.6 % (2-4); Hematocrit 26.3 % (36-46); Hemoglobin 8.4 g/dL (12.0-16.0); Lymphocytes Absolute Auto 1500 /uL (1100-4500); Lymphocytes Percent Auto 19.2 % (25-40); Mean Corpuscular HGB Conc 31.7 % (30-36); Mean Corpuscular Hemoglobin 23.2 PG (26-34); Monocytes Absolute Auto 500 /uL (0-900); Monocytes Percent Auto 6.9 % (3-14); Neutrophils Absolute Auto 5000 /uL (1500-7000); Platelet Count 460 X10^3/uL (150-400); Red Cell Distribution Width 16.1 % (11.6-14.8); White Blood Cell Count 7.8 X10^3/uL (4.5-11.0)
[2022-04-07 14:22] LABS: Alanine Aminotransferase 27 IU/L (<35); Alkaline Phosphatase 50 U/L (38-126); Aspartate Aminotransferase 35 IU/L (14-36); BUN Creatinine Ratio 42.3 (6-22); Bilirubin Total 0.2 mg/dL (0.2-1.3); Blood Urea Nitrogen 30 mg/dL (7-17); Calcium 8.7 mg/dL (8.4-10.2); Carbon Dioxide 26 mmol/L (22-32); Chloride 97 mmol/L (98-107); Estimated Glomerular Filt Rate > 60 mL/min (>60); Glucose 97 mg/dL (80-110); HEMOLYSIS < 15 (0-50); Potassium 4.4 mmol/L (3.4-5.1); Sodium 132 mmol/L (137-145); Total Protein 6.1 g/dL (6.3-8.2)
[2022-04-11 15:50] LABS: Albumin 3.5 g/dL (3.5-5.0); Albumin Globulin Ratio 1.3 (1.0-2.8); Globulin 2.6 g/dL (1.7-4.1)
== END ==
PROVIDERS: Family Provider Family Medicine; PCP Family Medicine; Referring Provider Surgery; Visit Provider Surgery
DX: L08.9 Local infection of the skin and subcutaneous tissue, unspecified (principal)
CPT/HCPCS: 36415; 80053; 85025

== ENCOUNTER → 2022-04-09 08:43 | Outpatient (CLI) | payer OTHER, SELFPAY ==
[2021-09-29 15:34] VITALS: BMI 23.2
== END ==
PROVIDERS: Family Provider Family Medicine; PCP Family Medicine; Referring Provider Family Medicine; Visit Provider Surgery
DX: I87.2 Venous insufficiency (chronic) (peripheral) (principal); L97.312 Non-pressure chronic ulcer of right ankle with fat layer exposed; L08.9 Local infection of the skin and subcutaneous tissue, unspecified; R60.0 Localized edema; L53.9 Erythematous condition, unspecified; A49.02 Methicillin resistant Staphylococcus aureus infection, unspecified site
CPT/HCPCS: 97597; 97598; 99213

== ENCOUNTER → 2022-04-16 13:09 | Outpatient (CLI) | payer OTHER, SELFPAY ==
[2021-09-29 15:34] VITALS: BMI 23.2
== END ==
PROVIDERS: Family Provider Family Medicine; PCP Family Medicine; Referring Provider Family Medicine; Visit Provider Surgery
DX: I87.2 Venous insufficiency (chronic) (peripheral) (principal); L97.312 Non-pressure chronic ulcer of right ankle with fat layer exposed; L97.322 Non-pressure chronic ulcer of left ankle with fat layer exposed; L08.9 Local infection of the skin and subcutaneous tissue, unspecified; A49.02 Methicillin resistant Staphylococcus aureus infection, unspecified site; R60.0 Localized edema; M25.571 Pain in right ankle and joints of right foot; M25.572 Pain in left ankle and joints of left foot
CPT/HCPCS: 11042; 97597; 99213

== ENCOUNTER → 2022-04-30 10:42 | Outpatient (CLI) | payer OTHER, SELFPAY ==
[2021-09-29 15:34] VITALS: BMI 23.2
== END ==
PROVIDERS: Family Provider Family Medicine; PCP Family Medicine; Referring Provider Family Medicine; Visit Provider Surgery
DX: I87.2 Venous insufficiency (chronic) (peripheral) (principal); L97.312 Non-pressure chronic ulcer of right ankle with fat layer exposed; L08.9 Local infection of the skin and subcutaneous tissue, unspecified; A49.02 Methicillin resistant Staphylococcus aureus infection, unspecified site; R60.0 Localized edema
CPT/HCPCS: 11042; 11045; 87070; 87077; 87186; 87205; 99213

== ENCOUNTER → 2022-05-02 08:56 | Outpatient (CLI) | payer OTHER, SELFPAY ==
[2021-09-29 15:34] VITALS: BMI 23.2
== END ==
PROVIDERS: Family Provider Family Medicine; PCP Family Medicine; Referring Provider Orthopaedic Surgery; Visit Provider Nurse Practitioner Family
DX: I87.2 Venous insufficiency (chronic) (peripheral) (principal); L97.312 Non-pressure chronic ulcer of right ankle with fat layer exposed; L97.322 Non-pressure chronic ulcer of left ankle with fat layer exposed
CPT/HCPCS: 29581; 36415; 80053; 85025

== ENCOUNTER → 2022-05-02 09:12 | Outpatient (CLI) | payer OTHER, SELFPAY ==
[2021-09-29 15:34] VITALS: BMI 23.2
[2022-05-02 09:37] LABS: Add Manual Diff / Slide Review NO; Basophils Absolute Auto 100 /uL (0-100); Basophils Percent Auto 0.8 % (0-2); Eosinophils Absolute Auto 300 /uL (0-450); Eosinophils Percent Auto 3.6 % (2-4); Hemoglobin 7.9 g/dL (12.0-16.0); Lymphocytes Absolute Auto 1300 /uL (1100-4500); Lymphocytes Percent Auto 16.3 % (25-40); Mean Corpuscular HGB Conc 31.8 % (30-36); Mean Corpuscular Hemoglobin 22.8 PG (26-34); Mean Corpuscular Volume 71.7 fL (80-100); Monocytes Absolute Auto 800 /uL (0-900); Monocytes Percent Auto 9.2 % (3-14); Neutrophils Absolute Auto 5700 /uL (1500-7000); Neutrophils Percent Auto 70.1 % (50-75); Platelet Count 488 X10^3/uL (150-400); Red Blood Cell Count 3.49 X10^6/uL (4.0-5.2); White Blood Cell Count 8.2 X10^3/uL (4.5-11.0)
[2022-05-02 09:57] LABS: Alanine Aminotransferase 23 IU/L (<35); Albumin Globulin Ratio 1.3 (1.0-2.8); Alkaline Phosphatase 52 U/L (38-126); Aspartate Aminotransferase 29 IU/L (14-36); Bilirubin Total 0.1 mg/dL (0.2-1.3); Blood Urea Nitrogen 31 mg/dL (7-17); Calcium 8.2 mg/dL (8.4-10.2); Carbon Dioxide 26 mmol/L (22-32); Chloride 98 mmol/L (98-107); Estimated Glomerular Filt Rate > 60 mL/min (>60); Globulin 2.3 g/dL (1.7-4.1); Glucose 94 mg/dL (80-110); HEMOLYSIS < 15 (0-50); Potassium 4.8 mmol/L (3.4-5.1); Sodium 132 mmol/L (137-145); Total Protein 5.3 g/dL (6.3-8.2)
== END ==
PROVIDERS: Family Provider Family Medicine; PCP Family Medicine; Referring Provider Surgery; Visit Provider Surgery
DX: L97.312 Non-pressure chronic ulcer of right ankle with fat layer exposed (principal)
CPT/HCPCS: 36415; 80053; 85025

== ENCOUNTER → 2022-05-05 13:32 | Outpatient (CLI) | payer OTHER, SELFPAY ==
[2021-09-29 15:34] VITALS: BMI 23.2
== END ==
PROVIDERS: Family Provider Family Medicine; PCP Family Medicine; Referring Provider Family Medicine; Visit Provider Surgery
DX: I87.2 Venous insufficiency (chronic) (peripheral) (principal); L97.312 Non-pressure chronic ulcer of right ankle with fat layer exposed; R60.0 Localized edema; M25.571 Pain in right ankle and joints of right foot
CPT/HCPCS: 29581

== ENCOUNTER → 2022-05-07 10:21 | Outpatient (CLI) | payer OTHER, SELFPAY ==
[2021-09-29 15:34] VITALS: BMI 23.2
== END ==
PROVIDERS: Family Provider Family Medicine; PCP Family Medicine; Referring Provider Family Medicine; Visit Provider Surgery
DX: I87.2 Venous insufficiency (chronic) (peripheral) (principal); L97.312 Non-pressure chronic ulcer of right ankle with fat layer exposed; L97.322 Non-pressure chronic ulcer of left ankle with fat layer exposed; L08.9 Local infection of the skin and subcutaneous tissue, unspecified; A49.02 Methicillin resistant Staphylococcus aureus infection, unspecified site; R60.0 Localized edema; R21 Rash and other nonspecific skin eruption; L53.9 Erythematous condition, unspecified; M25.572 Pain in left ankle and joints of left foot; M25.571 Pain in right ankle and joints of right foot
CPT/HCPCS: 97597; 97598; 99213

== ENCOUNTER → 2022-05-21 14:52 | Outpatient (CLI) | payer OTHER, SELFPAY ==
[2021-09-29 15:34] VITALS: BMI 23.2
== END ==
PROVIDERS: Family Provider Family Medicine; PCP Family Medicine; Referring Provider Orthopaedic Surgery; Visit Provider Surgery
DX: I87.2 Venous insufficiency (chronic) (peripheral) (principal); L97.312 Non-pressure chronic ulcer of right ankle with fat layer exposed; L97.322 Non-pressure chronic ulcer of left ankle with fat layer exposed; L89.893 Pressure ulcer of other site, stage 3; L08.9 Local infection of the skin and subcutaneous tissue, unspecified; R59.0 Localized enlarged lymph nodes; A49.02 Methicillin resistant Staphylococcus aureus infection, unspecified site; M25.571 Pain in right ankle and joints of right foot
CPT/HCPCS: 11042; 11045; 99213

== ENCOUNTER → 2022-05-28 14:59 | Outpatient (CLI) | payer OTHER, SELFPAY ==
[2021-09-29 15:34] VITALS: BMI 23.2
== END ==
PROVIDERS: Family Provider Family Medicine; PCP Family Medicine; Referring Provider Family Medicine; Visit Provider Surgery
DX: I87.2 Venous insufficiency (chronic) (peripheral) (principal); L97.312 Non-pressure chronic ulcer of right ankle with fat layer exposed; L97.322 Non-pressure chronic ulcer of left ankle with fat layer exposed; L89.893 Pressure ulcer of other site, stage 3; L08.9 Local infection of the skin and subcutaneous tissue, unspecified; A49.02 Methicillin resistant Staphylococcus aureus infection, unspecified site; R60.0 Localized edema
CPT/HCPCS: 11042; 97597

== ENCOUNTER → 2022-06-11 14:37 | Outpatient (CLI) | payer OTHER, SELFPAY ==
[2021-09-29 15:34] VITALS: BMI 23.2
== END ==
PROVIDERS: Family Provider Family Medicine; PCP Family Medicine; Referring Provider Family Medicine; Visit Provider Surgery
DX: I87.2 Venous insufficiency (chronic) (peripheral) (principal); L97.312 Non-pressure chronic ulcer of right ankle with fat layer exposed; L97.322 Non-pressure chronic ulcer of left ankle with fat layer exposed; L08.9 Local infection of the skin and subcutaneous tissue, unspecified; A49.02 Methicillin resistant Staphylococcus aureus infection, unspecified site; L89.893 Pressure ulcer of other site, stage 3; R60.0 Localized edema
CPT/HCPCS: 97597

== ENCOUNTER → 2022-06-25 14:50 | Outpatient (CLI) | payer OTHER, SELFPAY ==
[2021-09-29 15:34] VITALS: BMI 23.2
== END ==
PROVIDERS: Family Provider Family Medicine; PCP Family Medicine; Referring Provider Family Medicine; Visit Provider Nurse Practitioner Family
DX: I87.2 Venous insufficiency (chronic) (peripheral) (principal); L97.312 Non-pressure chronic ulcer of right ankle with fat layer exposed; L97.329 Non-pressure chronic ulcer of left ankle with unspecified severity; L89.893 Pressure ulcer of other site, stage 3; L08.9 Local infection of the skin and subcutaneous tissue, unspecified; R59.0 Localized enlarged lymph nodes; A49.02 Methicillin resistant Staphylococcus aureus infection, unspecified site; M19.072 Primary osteoarthritis, left ankle and foot
CPT/HCPCS: 11042; 73630; 99213

== ENCOUNTER → 2022-06-25 15:34 | Outpatient (CLI) | payer OTHER, SELFPAY ==
[2021-09-29 15:34] VITALS: BMI 23.2
--- NOTE | 2022-06-25 15:35 | DI.RAD.S_ITS ---
PROCEDURE: XR FOOT LT MIN 3V INDICATIONS: non-healing ulcer on left dorsal first metatarsal head TECHNIQUE: 3 views of the foot were acquired. COMPARISON: [facility], CR, XR FOOT RT MIN 3V, 08/22/2021, 10:56. FINDINGS: Bones: Severe joint space narrowing and periarticular osteophyte formation at the 1st metatarsophalangeal joint, indicating osteoarthritis. No fractures or dislocations. No suspicious bony lesions. Soft tissues: No tibiotalar joint effusion. Achilles tendon appears normal. IMPRESSION: 1. 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 2. No acute fracture. No osseous lesion. If symptoms and/or clinical suspicion for pathology persist, further assessment with repeat, or advanced imaging (e.g., CT, MRI, or bone scan) may be helpful for further assessment. Dictated by: Jose A Osorio M.D. on 06/25/2022 at 16:17 Transcribed by: [email or web address] on 06/25/2022 at 16:18 Approved by: Jose A Osorio M.D. on 06/25/2022 at 16:57
== END ==
PROVIDERS: Family Provider Family Medicine; PCP Family Medicine; Referring Provider Nurse Practitioner Family; Visit Provider Nurse Practitioner Family
DX: L89.893 Pressure ulcer of other site, stage 3 (principal); M19.072 Primary osteoarthritis, left ankle and foot
CPT/HCPCS: 73630

== ENCOUNTER → 2022-07-09 14:34 | Outpatient (CLI) | payer OTHER, SELFPAY ==
[2021-09-29 15:34] VITALS: BMI 23.2
== END ==
PROVIDERS: Family Provider Family Medicine; PCP Family Medicine; Referring Provider Family Medicine; Visit Provider Surgery
DX: I87.2 Venous insufficiency (chronic) (peripheral) (principal); L97.312 Non-pressure chronic ulcer of right ankle with fat layer exposed; L08.9 Local infection of the skin and subcutaneous tissue, unspecified; R59.0 Localized enlarged lymph nodes; A49.02 Methicillin resistant Staphylococcus aureus infection, unspecified site; L97.329 Non-pressure chronic ulcer of left ankle with unspecified severity; L89.893 Pressure ulcer of other site, stage 3; L97.322 Non-pressure chronic ulcer of left ankle with fat layer exposed; L53.9 Erythematous condition, unspecified
CPT/HCPCS: 11042; 11045; 87070; 87075; 87077; 87147; 87186; 87205; 97597; 99213

== ENCOUNTER → 2022-07-17 13:44 | Outpatient (CLI) | payer OTHER, SELFPAY ==
[2021-09-29 15:34] VITALS: BMI 23.2
== END ==
PROVIDERS: Family Provider Family Medicine; PCP Family Medicine; Referring Provider Orthopaedic Surgery; Visit Provider Surgery
DX: I87.2 Venous insufficiency (chronic) (peripheral) (principal); L97.312 Non-pressure chronic ulcer of right ankle with fat layer exposed; L97.322 Non-pressure chronic ulcer of left ankle with fat layer exposed; L89.893 Pressure ulcer of other site, stage 3; R60.0 Localized edema; L53.9 Erythematous condition, unspecified
CPT/HCPCS: 11042; 11045

== ENCOUNTER → 2022-07-24 14:02 | Outpatient (CLI) | payer OTHER, SELFPAY ==
[2021-09-29 15:34] VITALS: BMI 23.2
== END ==
PROVIDERS: Family Provider Family Medicine; PCP Family Medicine; Referring Provider Orthopaedic Surgery; Visit Provider Surgery
DX: I87.2 Venous insufficiency (chronic) (peripheral) (principal); L97.312 Non-pressure chronic ulcer of right ankle with fat layer exposed; L97.322 Non-pressure chronic ulcer of left ankle with fat layer exposed; L89.893 Pressure ulcer of other site, stage 3; L08.9 Local infection of the skin and subcutaneous tissue, unspecified; A49.02 Methicillin resistant Staphylococcus aureus infection, unspecified site
CPT/HCPCS: 11042; 11045; 99213